=== PATIENT | male | born 1950 | race Caucasian/White ===

== ENCOUNTER 2019-07-31 13:44 | Outpatient (CLI) | payer OTHER, MEDICARE, SELFPAY ==
--- NOTE | 2019-07-31 15:41 | ECG_ITS ---
Measurements Intervals [place] Rate: 81 P: 28 RI: 221 QRS: 10 QRSD: 126 T: 17 QT: 424 QTc: 494 Interpretive Statements SINUS OR ECTOPIC ATRIAL RHYTHM WITH FIRST DEGREE AV BLOCK ATRIAL PREMATURE COMPLEX INTRAVENTRICULAR CONDUCTION DELAY BORDERLINE R WAVE PROGRESSION, ANTERIOR LEADS BORDERLINE ST-T WAVE ABNORMALITY- INF/LAT LEADS ABNORMAL ECG Electronically Signed On 07-31-2019 17:18:13 HUMANE AGENT by Derik Tapia D.O.
[2019-07-31 16:07] LABS: Basophils Absolute Auto 0.1 K/mm3 (0.0-0.1); Basophils Percent Auto 0.7 % (0.2-1.2); Eosinophils Absolute Auto 0.3 K/mm3 (0-0.3); Eosinophils Percent Auto 3.7 % (0-4.4); Hematocrit 44.9 % (42.0-52.0); Hemoglobin 14.8 g/dL (14.0-18.0); Immature Granulocyte Absolute 0.03 K/mm3 (0.00-0.031); Immature Granulocyte Percent A 0.3 % (0-0.5); Lymphocytes Percent Auto 24.9 % (18.3-44.2); Mean Corpuscular Hemoglobin 30.6 pg (26-34); Monocytes Absolute Auto 1.4 K/mm3 (0.1-0.6); Monocytes Percent Auto 14.9 % (2.6-8.5); Neutrophils Absolute Auto 5.1 K/mm3 (1.3-6.7); Neutrophils Percent Auto 55.5 % (45.5-73.1); Platelet Count Result 237 k/mm3 (150-375); Red Blood Count 4.83 M/mm3 (4.6-6.20); Red Cell Distribution Width 13.4 % (11.5-14.5); White Blood Count 9.2 K/mm3 (4.5-10.0)
[2019-07-31 16:17] LABS: Urine Cotinine NEGATIVE
[2019-07-31 16:19] LABS: Hemoglobin A1C 6.3 % (<5.7)
[2019-07-31 16:20] LABS: Albumin Level 4.3 g/dL (3.5-5.1)
[2019-07-31 16:24] LABS: Blood Urea Nitrogen 14 mg/dL (9-20); Calcium 9.3 mg/dL (8.4-10.2); Carbon Dioxide 32 mmol/L (22-30); Chloride 93 mmol/L (98-107); Estimated Glomerular Filt Rate > 60; Glucose 105 mg/dL (75-110); Potassium 3.6 mmol/L (3.4-5.0); Sodium 136 mmol/L (137-145)
== END 2019-07-31 13:45 | disposition home or self-care (01) ==
LOC: ANHSURGERY 13:52
PROVIDERS: Anesthesiology; PCP Emergency Medicine; Visit Provider Orthopaedic Surgery
DX: M17.0 Bilateral primary osteoarthritis of knee (principal); E11.9 Type 2 diabetes mellitus without complications; Z01.818 Encounter for other preprocedural examination; R94.31 Abnormal electrocardiogram [ECG] [EKG]
CPT/HCPCS: 36415; 80048; 80307; 82040; 83036; 85025; 87081; 93005

== ENCOUNTER 2019-08-26 15:47 | Observation (INO) | payer MEDICARE, OTHER, SELFPAY ==
[2019-07-31 14:36] VITALS: BP 114/60; PULSE 88; RESP 20; TEMP 37.8; O2SAT 94; BMI 28.8
[2019-08-25] VITALS (17 sets, daily range): BP systolic 114–150; BP diastolic 78–99; PULSE 69–120; RESP 11–20; TEMP 36.6–37.1; O2SAT 92–96
--- NOTE | 2019-08-25 11:17 | WPDANESEPPF ---
Anes - Initial Pre Proc Eval Procedure: Operation Date: 08/25/19 13:30 Proposed Procedures p Left Total Knee Arthroplasty - [facility] Batista MD Date/Time: 08/25/19 11:17 Surgeon: [facility] Batista MD Pre Op Diagnosis: Left Knee OA Patient Data Age: 68 Gender: M Height: 1.8 m Weight: 93.9 kg Last Vital Signs Temp 37.8 C H 07/31/19 14:36 Pulse 88 07/31/19 14:36 Resp 20 07/31/19 14:36 BP 114/60 07/31/19 14:36 Pulse Ox 94 07/31/19 14:36 Allergies Allergy/AdvReac Type Severity Reaction Status Date / Time No Known Allergies Allergy Verified 08/25/19 11:55 Home Medications Medication Instructions Recorded Confirmed Type aspirin 81 mg tablet,delayed 81 mg PO DAILY 06/03/19 08/25/19 History release atorvastatin 20 mg tablet 80 mg PO DAILY 06/03/19 08/25/19 History furosemide 20 mg tablet 20 mg PO QAM 06/03/19 08/25/19 History losartan 50 mg tablet 50 mg PO DAILY 06/03/19 08/25/19 History metformin 500 mg tablet 500 mg PO DAILY 06/03/19 08/25/19 History metoprolol tartrate 25 mg tablet 25 mg PO BID 06/03/19 08/25/19 History omeprazole 20 mg capsule,delayed 20 mg PO DAILY 06/03/19 08/25/19 History release gabapentin 300 mg PO TID 07/31/19 08/25/19 History hydrocodone-acetaminophen 1 tablet PO Q4-6H PRN 07/31/19 08/25/19 History triamterene-hydrochlorothiazid 1 tablet PO QAM 07/31/19 08/25/19 History vit C,P-Bb-udjqe-lutein-zeaxan 1 tablet PO DAILY 07/31/19 08/25/19 History [PreserVision AREDS-2] ECG: Date of Service: 07/31/19 Procedure(s): CA 12 lead EKG Accession Number(s): [id number] cc: ~ Measurements Intervals [place] Rate: 81 P: 28 [place]: 221 QRS: 10 QRSD: 126 T: 17 QT: 424 QTc: 494 Interpretive Statements SINUS OR ECTOPIC ATRIAL RHYTHM WITH FIRST DEGREE AV BLOCK ATRIAL PREMATURE COMPLEX INTRAVENTRICULAR CONDUCTION DELAY BORDERLINE R WAVE PROGRESSION, ANTERIOR LEADS BORDERLINE ST-T WAVE ABNORMALITY- INF/LAT LEADS ABNORMAL ECG Electronically Signed On 07-31-2019 17:18:13 ACUTE CARE CERTIFIED NURSING ASSISTANT by Derik Tapia D.O. Dictated By: Derik Tapia DO 07/31/19 1605 Other Studies: echo 12/2017 - ef 60%, no valvular abnormalities stress 01/2018 - negative cleared by investor relations specialist Patient hx anesthesia problems: none Family hx anesthesia problems: none PMFSH Past Medical History Medical History (Updated 08/25/19 @ 12:41 by Juan Miguel Moran MD) CAD (coronary artery disease) COPD (chronic obstructive pulmonary disease) Diabetes Gastroesophageal reflux disease History of cardiac disorder VALVE REPAIR NOVEMBER 2011 Hypercholesterolemia Hypertension Localized osteoarthritis of left knee Osteoarthritis of both knees Surgical History Surgical History (Updated 08/25/19 @ 12:44 by Juan Miguel Moran MD) History of back surgery (~05/25/19) History of back surgery (~1986) History of eye surgery History of hand surgery (~2001) History of neck surgery (~2002) History of open heart surgery (~12/27/11) mitral valve replaced Social History Social History Smoking status: Former smoker Alcohol intake: current Anes - Eval Final PreProcedure Day of Procedure 08/25/19 11:17 Patient weight: overweight Heart: regular rate and rhythm Lungs: clear to auscultation and normal air movement Airway: Mallampati scale class II Neurological: alert and oriented Last oral intake: >/= 8 hours ASA classification: III Emergent: no Anesthetic plan: proceed Anesthesia type and monitoring: general LMA Informed Consent: The patient's anesthetic plan and its attendant risks and benefits were discussed with the patient/family/POA. Questions were solicite
[2019-08-25] MEDS: LACTATED RINGERS 1,000 ML 30 ML IV CONT ×2 (12:05→17:00)
[2019-08-25 12:10] LABS: Glucose Point of Care 96 (65-105)
--- NOTE | 2019-08-25 13:37 | SUR.PREOP ---
1200 PT INFORMEDD OF SURGEY TIME DELAY. PT DENIES NEEDS AT THIS TIME. 1300 PT RESTING, DENIES NEEDS AT THIS TIME.
--- NOTE | 2019-08-25 14:26 | WPDANESPNB ---
Anes - Peripheral Nerve Block Date/Time: 08/25/19 14:26 I have discussed with the patient/family/POA the placement of a peripheral nerve block for post-operative pain management, including associated risks, benefits, complications, and side effects. Alternative methods of post-operative analgesia were detailed. Questions were solicited and answers provided to the satisfaction of the patient/family/POA. Time-Out: A pre-procedural Time-Out was completed immediately before starting the procedure and confirmed: Patient Identification, Site, Procedure, Patient Position and the Availability of Requisite Equipment. Clinical Indications: Acute post-operative pain management requested by the operative surgeon. Nerve Block Insertion Note Anes-nerve block: adductor canal left Patient position: supine Skin prep: chlorhexidine Needle: 22 gauge, stimulating, insulated echogenic needle. Needle length: 80 mm Technique: ultrasound Technique comment: in plane Injectate: bupivacaine 0.5% with epi 5 mcg/ml (30cc) Observations: tolerated well Complications: none Procedure start time:: 1420 Procedure end time:: 1425
--- NOTE | 2019-08-25 14:31 | WPDHPUPDATE1 ---
History and Physical Update Update Date/Time: 08/25/19 14:31 History and Physical has been reviewed, including an updated exam of the patient. There are NO changes in the patient's condition. Risks, benefits, and alternatives have been discussed and questions answered. Patient agrees to proceed with procedure.
--- NOTE | 2019-08-25 14:53 | ECG_ITS ---
Measurements Intervals [place] Rate: 86 P: DC: 0 QRS: 12 QRSD: 89 T: 42 QT: 388 QTc: 466 Interpretive Statements SINUS OR ECTOPIC ATRIAL RHYTHM ATRIAL COUPLET, ATRIAL AND VENTRICULAR PREMATURE COMPLEXES BORDERLINE ST ABNORMALITY- ANTEROLAT/LAT LEADS ABNORMAL ECG Electronically Signed On 08-25-2019 16:35:09 HIGH SCHOOL HOME ECONOMICS TEACHER by Derik Tapia D.O.
--- NOTE | 2019-08-25 15:16 | SUR.PHASEI ---
1505 ekg done at bedside. ekg given to dr hamilton.
--- NOTE | 2019-08-25 15:20 | SUR.PHASEI ---
1451 surgery was aborted due to pt being in afib with pvc. sent to recovery. ekg ordere. cardiology consulted. 1520 [address] ham[address] spoke with dr umana, cardiology, pt has the ok to proceed with surgery per dr umana
[2019-08-25] MEDS: ceFAZolin SODIUM 1 GM VIAL IV PUSH (15:25)
--- NOTE | 2019-08-25 17:57 | PM.PROC ---
Procedure Note - Detailed Date of procedure: 08/25/19 Pre-op diagnosis: Left Knee OA Post-op diagnosis: same Procedure performed: Total knee arthroplasty, left Implants: [place] [employer] size 5 Cemented femur, size 6 cemented low-profile tibia, 13mm CS polyethylene insert, 38mm asymmetric metal backed patellar component. Anesthesia: GETA and regional (subsartorial nerve block) Surgeon: [facility] Batista MD Drains: No Complications: None Findings: OPERATIVE FINDINGS: The patient was found to be in atrial fibrillation preoperatively. He had a history of this in the past. Recent EKGs however have been normal. The anesthesiologist spoke with his laborer rags who felt that surgery could proceed. He would be treated with anticoagulation after several weeks when bleeding risk from surgery was deemed low. Intraoperative findings: Excellent bone quality. Valgus contracture required lateral release with pie crusting. Mild PCL release. Downsizing of the femur 1.5 mm. Looseness of the lateral medial tissues required decreased external rotation of the femoral component to 1 degree. OPERATIVE DETAILS: The patient was given a nerve block preoperatively, and then brought to the operating room. A general anesthetic was administered. The leg was prepped and draped in the usual sterile fashion. The limb was elevated and the tourniquet inflated to 300 mmHg. A longitudinal incision was created along the medial border of the patella and patellar tendon, and a minimally invasive optimized mid-vastus approach to the knee was performed. A minimal medial release was taken. The knee was then flexed. The osteophytes were carefully removed. The intramedullary guide was placed in the femoral canal. The distal femoral resection was then taken with the oscillating saw. The collateral ligaments were carefully protected. The tibia was carefully exposed. The jig was applied, and the proximal tibia was resected according to preoperative plan. The pain really anesthetic mixture was injected into the periarticular tissues. The knee was balanced in extension, and appropriate releases were taken where needed. Pie crusting of the LCL and resection of the popliteus was performed. Release of the ITB band was also required. The anterior cruciate ligament and meniscal remnants were removed. The posterior cruciate ligament was preserved. The patella was measured. Patellar resection was carried out with the oscillating saw. The lug holes drilled. The femur was sized and rotation assessed using a combination of gap balancing, posterior referencing, and the AP axis. The 4 in 1 cutting block was used to finish the femoral cuts after equal gaps were assured. The lug holes were drilled. The osteophytes were carefully removed from the back of the knee. The knee was copiously irrigated with antibiotic solution periodically throughout the procedure. The spacer block was used to confirm equal flexion and extension gaps. Further releases were performed as needed. The tibia was sized and broached. The bony surfaces were prepared for cementing with pulsatile lavage. The real tibial component and femoral components were cemented into position. Excess cement was carefully removed. The polyethylene insert was placed. The patella component was subsequently press-fit. Patellar tracking was carefully assessed. No additional releases were required. The wound was closed with #1 Vicryl suture, #2 Quill suture, 3-Vueitn-vdp suture, and 2-0 Strata-fix suture followed by Steri-Strips. A sterile bulky dressing was applied. Meticulous hemostasis was maintained throughout the procedure. The SlideMailtys device was used. There were no complications. The patient was extubated and brought to the recovery room in stable condition after the application of sterile dressing with Pierce bandage.
--- NOTE | 2019-08-25 18:15 | SUR.PHASEI ---
[address] kam. hospitalist consulted also. dr kam spoke with hospitalist. waiting for hospitalist to see pt in recovery. 1814 ekg done at bedside. sr with frequent pvc
--- NOTE | 2019-08-25 18:20 | SUR.PHASEI ---
5641 radiology at bedside to do xrays
--- NOTE | 2019-08-25 18:37 | SUR.PHASEI ---
1837 family updated on pt scout and current situation
--- NOTE | 2019-08-25 19:27 | SUR.PHASEI ---
192 hospitalist heather ayala notified. pt ok to go to floor, 3 med surg with tele, will see pt on floor. warehouse coordinator notified getting pt a bed
--- NOTE | 2019-08-25 19:33 | SUR.PHASEI ---
1930 spouse updated on pt condition and bed situation
--- NOTE | 2019-08-25 19:46 | SUR.PHASEI ---
9053 sbar faxed to floor. family updated on room#
[2019-08-25] MEDS: METOPROLOL TARTRATE 25 MG TABLET PO (21:07)
[2019-08-25] MEDS: SODIUM CHLORIDE 0.9% IV 1,000 ML 125 ML IV CONT (21:07)
[2019-08-25] MEDS: GABAPENTIN 300 MG CAPSULE PO (21:07)
[2019-08-26] VITALS (16 sets, daily range): BP systolic 128–150; BP diastolic 66–72; PULSE 69–91; RESP 16–20; TEMP 36.6–36.9; O2SAT 92–100
--- NOTE | ~2019-08-26 | XR_ITS ---
EXAMINATION: XR knee LT 2V DATE: 08/25/2019 17:46 INDICATION: Postoperative evaluation following left total knee arthroplasty. TECHNIQUE: Anteroposterior and lateral views of the left knee were obtained. COMPARISON: None. FINDINGS: Left total knee arthroplasty with patellar resurfacing appears well seated and in near anatomic align ment. No fractures identified. Expected postoperative subcutaneous and intra-articular gas. IMPRESSION: 1. Left total knee arthroplasty, negative for postoperative purposes. Reviewed, dictated and finalized at location A. MACHINE DEPARTMENT FLOORPERSON
--- NOTE | ~2019-08-26 | XR_ITS ---
EXAMINATION: XR chest 1V portable INDICATION: Cough TECHNIQUE: Portable AP chest at 0927 hours COMPARISON: None available FINDINGS: There are minimal airspace opacities of the lung bases. No pleural effusion or pneumothorax is identified. Cardiomegaly is noted. There are changes of cardiac valve surgery. IMPRESSION: 1. Cardiomegaly. 2. Minimal airspace opacities of the lung bases, likely atelectasis. Reviewed, dictated and finalized at location A. TIVE CHECKER
--- NOTE | 2019-08-26 00:29 | PM.IMCN ---
Assessment and Plan Assessment and plan (1) Status post total left knee replacement: Code(s): Z96.652 - Presence of left artificial knee joint Status: Acute Assessment and Plan: Management per primary service. (2) COPD (chronic obstructive pulmonary disease): Qualifiers: COPD type: COPD with acute exacerbation Qualified Code(s): J44.1 - Chronic obstructive pulmonary disease with (acute) exacerbation Code(s): J44.9 - Chronic obstructive pulmonary disease, unspecified Status: Acute Assessment and Plan: The patient has an acute COPD exacerbation likely due to viral upper respiratory tract infection and or increased wheezing due to recent intubation. Will place the patient on Xopenex and Atrovent as needed. Hopefully bronchodilators will be in a to open the patient's airway without the need for additional steroids. There was not need add antibiotics at this time as patient is afebrile and nontoxic in appearance. (3) Abnormal EKG: Code(s): R94.31 - Abnormal electrocardiogram [ECG] [EKG] Status: Acute Assessment and Plan: Consistent with sinus or ectopic atrial rhythm with atrial couplets and/or atrial and ventricular premature complexes. This appears similar to the patient's prior EKG and is likely the patient's baseline. (4) Hypertension: Qualifiers: Hypertension type: essential hypertension Qualified Code(s): I10 - Essential (primary) hypertension Code(s): I10 - Essential (primary) hypertension Status: Acute Assessment and Plan: Patient's blood pressure is stable. Will continue home medications. (5) Diabetes: Qualifiers: Diabetes mellitus complication detail: with polyneuropathy Diabetes mellitus complication status: with neurologic complications Diabetes mellitus alf insulin use: without termite control representative use Diabetes mellitus type: type 2 Qualified Code(s): E11.42 - Type 2 diabetes mellitus with diabetic polyneuropathy Code(s): E11.9 - Type 2 diabetes mellitus without complications Status: Acute Assessment and Plan: Patient's hemoglobin A1c was 6.3 July 31, 2019. Glucose currently is normal. Will continue metformin. HPI Data of Consult Consult date: 08/26/19 Requesting Physician: [facility] Batista MD Primary Care Provider: PHYSICIAN NOT ON STAFF Consult Narrative Narrative: Date and time of patient contact: 08/25/2019 at 11:30 p.m. Danny Hodge is a 68 year old male with a past medical history of COPD, mitral valve repair, diabetes and cardiac arrhythmia who presented to the hospital for elective left total knee arthroplasty. The patient underwent left total knee arthroplasty on 08/25/2019 under general endotracheal anesthesia with regional nerve block. The patient reports he is not having much pain currently and thinks that his nerve block is working well. Perioperatively the patient had any EKG which demonstrated an atrial arrhythmia. The anesthesiologist contacted patient's recreation superintendent who felt it was safe to proceed with surgery. The patient reports that he has had a cough for 3 or 4 days. He is noted to be wheezing at the time of my evaluation. He reports he has had nasal congestion and reports green sputum production and green nasal drainage. He denies any fevers or chills. He reports that his cough is for the most part dry. He has noticed himself wheezing more over the last several days. He feels as if he has a tickle in his throat. He denies any sore throat. He has not had any nausea or vomiting. He denies any recent ill contacts. He does have a history of COPD was states that he has been tried on inhalers in the past and they did not seem to work for him but he does not specifically recall having tried nebulizers to see if they will help. He does have peripheral neuropathy but is stable. He also has chronic sciatica pain and low back pain. He had a lumbar surgery in
[2019-08-26] MEDS: IPRATROPIUM BR 0.02% INH SOLN 0.5 MG/2.5 ML VIAL INHALATION ×2 (00:56→14:43)
[2019-08-26] MEDS: DIAZEPAM 5 MG TABLET PO (02:01)
[2019-08-26 05:56] LABS: Basophils Percent Auto 0.1 % (0.2-1.2); Hematocrit 38.4 % (42.0-52.0); Hemoglobin 12.6 g/dL (14.0-18.0); Immature Granulocyte Absolute 0.08 K/mm3 (0.00-0.031); Immature Granulocyte Percent A 0.6 % (0-0.5); Lymphocytes Absolute Auto 1.34 K/mm3 (0.9-3.2); Mean Corpuscular HGB Conc 32.8 g/dl (32-36); Mean Corpuscular Volume 94.6 fl (80-100); Mean Platelet Volume 10.7 fl (7.4-10.4); Monocytes Absolute Auto 1.2 K/mm3 (0.1-0.6); Neutrophils Absolute Auto 10.7 K/mm3 (1.3-6.7); Neutrophils Percent Auto 80.3 % (45.5-73.1); Platelet Count Result 241 k/mm3 (150-375); Red Blood Count 4.06 M/mm3 (4.6-6.20); Red Cell Distribution Width 13.8 % (11.5-14.5); White Blood Count 13.4 K/mm3 (4.5-10.0)
[2019-08-26 06:29] LABS: Blood Urea Nitrogen 17 mg/dL (9-20); Calcium 8.1 mg/dL (8.4-10.2); Carbon Dioxide 22 mmol/L (22-30); Chloride 95 mmol/L (98-107); Estimated CRCL calculation 94 ml/min; Estimated Glomerular Filt Rate > 60; Glucose 354 mg/dL (75-110); Potassium 3.9 mmol/L (3.4-5.0); Sodium 136 mmol/L (137-145)
[2019-08-26] MEDS: ATORVASTATIN 20 MG TABLET 80 MG PO (08:32)
[2019-08-26] MEDS: metFORMIN HCL 500 MG TABLET PO (08:33)
[2019-08-26] MEDS: OPTI-GEN TAB 1 TABLET PO (08:33)
[2019-08-26] MEDS: LOSARTAN POTASSIUM 50 MG TABLET PO (08:33)
[2019-08-26] MEDS: MELOXICAM 7.5 MG TABLET PO ×2 (08:33→20:12)
[2019-08-26] MEDS: TRIAMTERENE 37.5 MG/HCTZ 25 MG (MAXZIDE) TABLET 1 TAB PO (08:33)
[2019-08-26] MEDS: GABAPENTIN 300 MG CAPSULE PO ×3 (08:33→20:12)
[2019-08-26] MEDS: DOCUSATE SODIUM 100 MG CAPSULE PO ×2 (08:33→20:12)
[2019-08-26] MEDS: PANTOPRAZOLE 40 MG TABLET PO (08:33)
[2019-08-26] MEDS: FUROSEMIDE 20 MG TABLET PO (08:33)
[2019-08-26] MEDS: METOPROLOL TARTRATE 25 MG TABLET PO ×2 (08:34→20:15)
[2019-08-26] MEDS: RIVAROXABAN 10 MG TABLET PO (08:34)
--- NOTE | 2019-08-26 13:46 | P.PNAN_ITS ---
Anes - Prog Note Post-Op Date/Time: 08/26/19 13:46 Cardiovascular status: other (patient being monitored by engineering group manager) Respiratory status: normal Airway patency: baseline Mental status: baseline Post-Op hydration status: normal Vital Signs: Last Vital Signs Temp 36.6 C 08/26/19 06:00 Pulse 81 08/26/19 12:00 Resp 18 08/26/19 06:00 BP 150/71 H 08/26/19 06:00 Pulse Ox 95 08/26/19 10:23 Pain Score (VAS): 0/10. Patient resting in bed at time of assessment, appears comfortable. Support person at bedside. I/O: Intake & Output 08/25/19 08/26/19 08/26/19 23:59 07:59 15:59 Intake Total 350 1850 360 Output Total 2 Balance 350 1848 360 Laboratory Tests 08/26/19 05:34 08/26/19 05:34 08/26/19 08/26/19 05:34 05:34 WBC 13.4 H RBC 4.06 L Hgb 12.6 L Hct 38.4 L MCV 94.6 MCH 31.0 MCHC 32.8 RDW 13.8 Plt Count 241 MPV 10.7 H Immature Gran % (Auto) 0.6 H Neut % (Auto) 80.3 H Lymph % (Auto) 10.0 L [place] % (Auto) 9.0 H Eos % (Auto) 0.0 Baso % (Auto) 0.1 L Lymph # (Auto) 1.34 [place] # (Auto) 1.2 H Eos # (Auto) 0.0 Baso # (Auto) 0.0 Abs Immat Gran (auto) 0.08 H Absolute Neuts (auto) 10.7 H Absolute Nucleated RBC 0.0 Nucleated RBC % 0.0 Sodium 136 L Potassium 3.9 Chloride 95 L Carbon Dioxide 22 BUN 17 Creatinine 0.70 Estim Creat Clear Calc 94 Estimated GFR > 60 Glucose 354 H Calcium 8.1 L Post-procedural complaints: none Patient Feedback: Patient satisfied with anesthetic care.
--- NOTE | 2019-08-26 15:13 | PM.IMPN ---
Progress Note: A&P Assessment and Plan (1) Status post total left knee replacement: Code(s): Z96.652 - Presence of left artificial knee joint Status: Acute Assessment and Plan: POD#1 s/p left total knee arthroplasty by Dr. Batista 08/25 and seems to be doing well. Wound care, pain control, DVT prophylaxis per the primary service. (2) COPD (chronic obstructive pulmonary disease): Qualifiers: COPD type: COPD with acute exacerbation Qualified Code(s): J44.1 - Chronic obstructive pulmonary disease with (acute) exacerbation Code(s): J44.9 - Chronic obstructive pulmonary disease, unspecified Status: Acute Assessment and Plan: Slight expiratory wheezing noted today. Afebrile, nontoxic in appearance. Continue nebulized bronchodilators as needed. No steroids or antibiotics warranted at this point based on his exam today. (3) Abnormal EKG: Code(s): R94.31 - Abnormal electrocardiogram [ECG] [EKG] Status: Acute Assessment and Plan: Consistent with sinus or ectopic atrial rhythm with atrial couplets and/or atrial and ventricular premature complexes. Telemetry review today shows ventricular trigeminy. He denies chest pain, palpitations, or dizziness. Similar findings are noted on his pre-op EKG from July. These findings are likely chronic for him. His established oil painter is Dr Yousif Fall with [facility]; patient saw him a few weeks ago when he cleared the patient for surgery. I am also told by the patient's that a new EKG was faxed to Dr Fall yesterday preoperatively. He should follow up with Dr Fall after discharge. No further medication adjustments today. Continue his home regimen to include beta blockade. (4) Hypertension: Qualifiers: Hypertension type: essential hypertension Qualified Code(s): I10 - Essential (primary) hypertension Code(s): I10 - Essential (primary) hypertension Status: Acute Assessment and Plan: Elevated likely secondary to postop pain. Continue his home antihypertensive regimen and monitor BP. (5) Diabetes: Qualifiers: Diabetes mellitus type: type 2 Diabetes mellitus fci insulin use: without exterminator helper termite use Diabetes mellitus complication status: with neurologic complications Diabetes mellitus complication detail: with polyneuropathy Qualified Code(s): E11.42 - Type 2 diabetes mellitus with diabetic polyneuropathy Code(s): E11.9 - Type 2 diabetes mellitus without complications Status: Acute Assessment and Plan: Patient's preop Hgb A1c was 6.3 07/31/19. Glucose elevated on morning labs, will order for bedside Accu-Cheks ACHS and sliding scale insulin coverage. Continue his home metformin also. Subjective Date/time seen: 08/26/19 15:13 Interval history: Mr. Hodge is a 68yo M seen in follow up this afternoon POD#1 s/p left total knee arthroplasty by Dr. Batista. Procedure went well without complications to my knowledge and the patient feels well today. He reports therapy went well also. He is tolerating oral intake without nausea or vomiting. He denies any chest pain or palpitations. He notes a productive cough today, shortness of breath is mild and at his baseline. Review of Systems Review of Systems: Narrative: Twelve systems were reviewed with pertinent positives and negatives as per HPI. Exam Narrative: Exam Narrative: General: Male sitting up in bedside chair in no acute distress. HEENT: Normocephalic, EOMI, oral mucosa moist. Cardiovascular: Rate is normal, ectopic beats are auscultated. Telemetry review shows frequent PACs and PVCs with ventricular trigeminy. He is asymptomatic with this. Respiratory: Faint expiratory wheeze with prolonged expiratory phase. Productive cough noted on exam. Respirations are
--- NOTE | 2019-08-26 15:55 | PM.PNORT ---
Progress Note: A&P Assessment and Plan (1) Status post total left knee replacement: Code(s): Z96.652 - Presence of left artificial knee joint Status: Acute Assessment and Plan: Progressing satisfactorily. No new cardiac symptoms. Recommend keeping the patient another night, due to increasing pain, cardiac history, and poor mobility. Subjective Subjective Date/Time Seen: 08/26/19 15:55 Interval history: Complains of moderate pain. No chest pain, or shortness of breath. Exam Narrative: Exam Narrative: Wound is healing well. No drainage, or hematoma. Moderate swelling. Anterior tibialis and EHL 5/5. No edema. Calves non tender. Const: Orientation/consciousness: patient oriented x3 Extrem: General: capillary refill normal, no calf tenderness bilaterally and no pedal edema Psych: Affect: normal affect Objective Data Vital Signs Vital Signs: Vital Signs - 24 hr 08/25/19 17:40 08/25/19 17:55 08/25/19 18:10 Temperature 36.8 C Pulse Rate 81 74 78 Respiratory Rate 17 18 Blood Pressure 139/88 145/88 H 141/85 H Pulse Oximetry 96 96 96 08/25/19 18:25 08/25/19 18:40 08/25/19 18:55 Temperature Pulse Rate 74 77 76 Respiratory Rate 13 14 14 Blood Pressure 131/78 148/98 H 130/99 H Pulse Oximetry 92 94 94 08/25/19 19:10 08/25/19 19:25 08/25/19 19:40 Temperature Pulse Rate 73 72 77 Respiratory Rate 12 12 12 Blood Pressure 139/94 H 147/82 H 150/92 H Pulse Oximetry 94 95 95 08/25/19 20:03 08/25/19 20:18 08/25/19 20:48 Temperature 37.1 C 36.8 C 36.9 C Pulse Rate 70 69 69 Respiratory Rate 18 18 18 Blood Pressure 148/85 H 142/79 H 139/80 Pulse Oximetry 95 96 96 08/25/19 21:07 08/25/19 22:30 08/26/19 00:00 Temperature Pulse Rate 70 69 76 Respiratory Rate Blood Pressure Pulse Oximetry 08/26/19 00:57 08/26/19 01:03 08/26/19 02:07 Temperature 36.8 C Pulse Rate 69 72 69 Respiratory Rate 18 18 18 Blood Pressure 142/72 H Pulse Oximetry 96 08/26/19 04:00 08/26/19 06:00 08/26/19 08:00 Temperature 36.6 C Pulse Rate 83 87 83 Respiratory Rate 18 Blood Pressure 150/71 H Pulse Oximetry 92 08/26/19 08:34 08/26/19 10:23 08/26/19 12:00 Temperature Pulse Rate 72 81 Respiratory Rate Blood Pressure Pulse Oximetry 95 08/26/19 14:44 08/26/19 14:55 Temperature Pulse Rate 77 76 Respiratory Rate 18 16 Blood Pressure Pulse Oximetry Intake/Output Intake/Output: Intake & Output 08/23/19 08/24/19 08/25/19 08/26/19 23:59 23:59 23:59 23:59 Intake Total 350 2210 Output Total 2 Balance 350 2208 Meds/Results Medications: Active Medications Generic Name Dose Route Start Last Admin Trade Name Freq PRN Reason Stop Dose Admin Atorvastatin Calcium 80 mg 08/26/19 09:00 08/26/19 08:32 Lipitor PO 80 mg DAILY ANIKA Administration Diazepam 5 mg 08/25/19 20:03 08/26/19 02:01 Valium Po PO 5 mg Q8H PRN Administration Spasms Diphenhydramine HCl 25 mg 08/25/19 20:03 Benadryl Inj IV PUSH Q6H PRN Itching Docusate Sodium 100 mg 08/26/19 09:00 08/26/19 08:33 Colace Capsule PO 100 mg BID ANIKA Administration Furosemide 20 mg 08/26/19 09:00 08/26/19 08:33 Lasix Tablet PO 20 mg QAM ANIKA Administration Gabapentin 300 mg 08/25/19 17:00 08/26/19 08:33 Neurontin PO 300 mg TID ANIKA Administration Ipratropium Mark 0.5 mg 08/26/19 00:26 08/26/19 14:43 Atrovent Neb INHALATION 0.5 mg Q4HRT PRN Administration Shortness of breath/COUGH Levalbuterol HCl 1.25 mg 08/26/19 00:27 08/26/19 14:44 Xopenex 1.25 Mg/0.5 Ml INHALATION 1.25 mg Q4HRT PRN Administration COUGH SHORTNESS OF BREATH Losartan Potassium 50 mg 08/26/19 09:00 08/26/19 08:33 Cozaar PO 50 mg DAILY ANIKA Administration Meloxicam 7.5 mg 08/26/19 08:00 08/26/19 08:33 Mobic PO 7.5 mg BIDWM ANIKA Administration Meperidine HCl 100 mg 08/25/19 20:03
[2019-08-26 18:38] LABS: Glucose Point of Care 134 (65-105)
[2019-08-27] VITALS (8 sets, daily range): BP systolic 101; BP diastolic 55; PULSE 72–95; RESP 20; TEMP 37.2; O2SAT 96–97
[2019-08-27 06:18] LABS: Hematocrit 35.7 % (42.0-52.0); Hemoglobin 11.6 g/dL (14.0-18.0); Mean Corpuscular HGB Conc 32.5 g/dl (32-36); Mean Corpuscular Hemoglobin 30.7 pg (26-34); Mean Corpuscular Volume 94.4 fl (80-100); Mean Platelet Volume 10.3 fl (7.4-10.4); Platelet Count Result 232 k/mm3 (150-375); Red Blood Count 3.78 M/mm3 (4.6-6.20); Red Cell Distribution Width 14.1 % (11.5-14.5)
[2019-08-27 06:34] LABS: Blood Urea Nitrogen 17 mg/dL (9-20); Calcium 7.9 mg/dL (8.4-10.2); Carbon Dioxide 30 mmol/L (22-30); Chloride 95 mmol/L (98-107); Estimated CRCL calculation 83 ml/min; Estimated Glomerular Filt Rate > 60; Glucose 128 mg/dL (75-110); Magnesium 1.7 mg/dL (1.6-2.3); Phosphorus 3.2 mg/dL (2.5-4.5); Potassium 3.7 mmol/L (3.4-5.0); Sodium 137 mmol/L (137-145)
[2019-08-27 07:01] LABS: Glucose Point of Care 111 (65-105)
[2019-08-27] MEDS: ATORVASTATIN 20 MG TABLET 80 MG PO (08:33)
[2019-08-27] MEDS: METOPROLOL TARTRATE 25 MG TABLET PO (08:33)
[2019-08-27] MEDS: MELOXICAM 7.5 MG TABLET PO (08:33)
[2019-08-27] MEDS: FUROSEMIDE 20 MG TABLET PO (08:35)
[2019-08-27] MEDS: LOSARTAN POTASSIUM 50 MG TABLET PO (08:35)
[2019-08-27] MEDS: metFORMIN HCL 500 MG TABLET PO (08:35)
[2019-08-27] MEDS: OPTI-GEN TAB 1 TABLET PO (08:35)
[2019-08-27] MEDS: DOCUSATE SODIUM 100 MG CAPSULE PO (08:35)
[2019-08-27] MEDS: TRIAMTERENE 37.5 MG/HCTZ 25 MG (MAXZIDE) TABLET 1 TAB PO (08:35)
[2019-08-27] MEDS: PANTOPRAZOLE 40 MG TABLET PO (08:36)
[2019-08-27] MEDS: GABAPENTIN 300 MG CAPSULE PO (08:36)
[2019-08-27] MEDS: RIVAROXABAN 10 MG TABLET PO (08:36)
[2019-08-27] MEDS: MAGNESIUM OXIDE 400 MG TABLET PO (09:10)
--- NOTE | 2019-08-27 09:33 | PM.IMPN ---
Progress Note: A&P Assessment and Plan (1) Status post total left knee replacement: Code(s): Z96.652 - Presence of left artificial knee joint Status: Acute Assessment and Plan: POD#2 s/p left total knee arthroplasty by Dr. Batista 08/25. Wound care, pain control, DVT prophylaxis per the primary service. (2) COPD (chronic obstructive pulmonary disease): Qualifiers: COPD type: COPD with acute exacerbation Qualified Code(s): J44.1 - Chronic obstructive pulmonary disease with (acute) exacerbation Code(s): J44.9 - Chronic obstructive pulmonary disease, unspecified Status: Acute Assessment and Plan: Slight expiratory wheezing noted with productive cough. Afebrile, nontoxic in appearance. Chest XR shows atelectasis. Changed nebulized bronchodilators to scheduled q6, added pulmozyme and mucinex, [place]. He has been taking mucinex at home for the last several days. Recommend continuing mucinex at discharge and making sure he takes his incentive spirometer home. (3) Abnormal EKG: Code(s): R94.31 - Abnormal electrocardiogram [ECG] [EKG] Status: Acute Assessment and Plan: Consistent with sinus or ectopic atrial rhythm with atrial couplets and/or atrial and ventricular premature complexes. Telemetry review today shows paired PVCs that are frequent. He denies chest pain, palpitations, or dizziness. Similar findings are noted on his pre-op EKG from July. These findings appear chronic for him. His established agent ticketing gate is Dr Yousif Fall with [facility]; patient saw him a few weeks ago when he cleared the patient for surgery. I am also told by the patient's that a new EKG was faxed to Dr Fall 08/24 preoperatively. He should follow up with Dr Fall after discharge. No further medication adjustments today. Continue his home regimen to include beta blockade. (4) Hypertension: Qualifiers: Hypertension type: essential hypertension Qualified Code(s): I10 - Essential (primary) hypertension Code(s): I10 - Essential (primary) hypertension Status: Acute Assessment and Plan: Continue his home losartan, metoprolol, Maxzide and monitor BP. (5) Diabetes: Qualifiers: Diabetes mellitus complication detail: with polyneuropathy Diabetes mellitus complication status: with neurologic complications Diabetes mellitus manager long term care insulin use: without halfway use Diabetes mellitus type: type 2 Qualified Code(s): E11.42 - Type 2 diabetes mellitus with diabetic polyneuropathy Code(s): E11.9 - Type 2 diabetes mellitus without complications Status: Acute Assessment and Plan: Patient's preop Hgb A1c was 6.3 07/31/19. Monitor with Accu-Cheks and cover sliding scale insulin. Continue home metformin. Diabetic diet. Additional Plan Thank you for allowing me to participate this patient's care. Call for any questions or concerns. He is medically stable for discharge from hospitalist standpoint when the primary service deems this appropriate. Recommend continuing Mucinex and IS at discharge. Recommend follow-up with PCP Dr Beau Juarez in 1 week after discharge; follow-up with agent ticketing gate Dr Yousif Fall in 1 to 2 weeks. Subjective Date/time seen: 08/27/19 09:00 Interval history: Mr. Hodge is a 68yo M seen in follow up this afternoon POD#2 s/p left total knee arthroplasty by Dr. Batista. He feels like his left knee is more stiff and painful today. He has not yet worked with therapy this morning but reports therapy went fairly well yesterday. He continues with a productive cough today but denies feeling very short of breath. He denies chest pains or palpitations. He tolerated breakfast without nausea or vomiting. Review of Systems Review of Systems: Narrative: Twelve systems wer
[2019-08-27] MEDS: IPRATROPIUM BR 0.02% INH SOLN 0.5 MG/2.5 ML VIAL INHALATION (10:35)
[2019-08-27] MEDS: DORNASE ALFA INH SOLN 1 MG/ML 2.5 ML AMP 2.5 MG INHALATION (10:36)
--- NOTE | 2019-08-27 12:36 | PM.DS ---
DS: Diagnosis Admitting Diagnosis Admitting Diagnosis: Type 2 diabetes mellitus without complications Discharge Diagnosis (1) Status post total left knee replacement: Code(s): Z96.652 - Presence of left artificial knee joint Status: Acute (2) Abnormal EKG: Code(s): R94.31 - Abnormal electrocardiogram [ECG] [EKG] Status: Acute DS: Summary Hospital Course Reason for hospitalization: Total knee arthroplasty. Hospital Course: Tolerated surgery well. Progressed appropriately with therapy. Status at Discharge Functional status at discharge: uses cane/walker Time Spent with Patient Time attestation: Total time spent providing and/or coordinating discharge services: Exam Const: General: no acute distress Resp: Effort & Inspection: normal respiratory effort Skin: Other: Wound healing well. Mepilex dressing intact. No hematoma or drainage. Neuro: Motor exam (neuro): 5/5 motor strength present throughout Sensory Exam: normal sensation Psych: Mental Status: mental status grossly normal Speech and movement: Normal speech and movement present DS: Data Data Completed and Pending Labs on day of discharge: Labs from last 24 hours 08/27/19 08/27/19 08/27/19 06:58 06:06 06:06 WBC 12.0 H RBC 3.78 L Hgb 11.6 L Hct 35.7 L MCV 94.4 MCH 30.7 MCHC 32.5 RDW 14.1 Plt Count 232 MPV 10.3 Sodium 137 Potassium 3.7 Chloride 95 L Carbon Dioxide 30 BUN 17 Creatinine 0.80 Estim Creat Clear Calc 83 Estimated GFR > 60 Glucose 128 H POC Capillary Glucose 111 H Calcium 7.9 L Phosphorus 3.2 Magnesium 1.7 08/26/19 08/25/19 18:29 12:05 WBC RBC Hgb Hct MCV MCH MCHC RDW Plt Count MPV Sodium Potassium Chloride Carbon Dioxide BUN Creatinine Estim Creat Clear Calc Estimated GFR Glucose POC Capillary Glucose 134 H 96 Calcium Phosphorus Magnesium Discharge Plan Discharge Attending physician on discharge: [facility] Consulting providers: Helga Wilson ; Gabbie Harkins Discharging Clinician: [facility] Patient Disposition: Home, Self-Care Activity: may shower Diet: regular Wound Care Instructions: follow printed instructions Discharge Instructions: See instruction sheet. Hospitalist Discharge Instructions: Follow up with Dr Batista as instructed. Follow up with your primary care provider, Dr Juarez in 1 week after discharge. Follow up with your shrimp boat captain, Dr Fall in 1 to 2 weeks after discharge. Continue mucinex and continue using incentive spirometer at home. Follow-up/Referrals: [facility] [Provider Group] - 2 Weeks (Follow up with Dr Yousif Fall in 1 to 2 weeks.) UNKNOWN,DOCTOR [Primary Care Provider] - Follow Up with Primary Dr (Follow up with primary care doctor in 1 week.) Discharge Medications: New oxycodone-acetaminophen 5-325 mg tablet 1 - 2 tablet PO Q4-6H MDD 8 tablets PRN (Reason: pain) Qty: 40 RF: 0 guaifenesin [Mucus Relief ER] 600 mg Tablet Extended Release 12hr 600 mg PO Q12HR 10 Days Qty: 20 RF: 0 Xarelto 10 mg tablet 10 mg PO DAILY Qty: 14 RF: 0 Continued metformin 500 mg tablet 500 mg PO DAILY RF: 0 atorvastatin 20 mg tablet 80 mg PO DAILY RF: 0 losartan 50 mg tablet 50 mg PO DAILY RF: 0 furosemide 20 mg tablet 20 mg PO QAM RF: 0 metoprolol tartrate 25 mg tablet 25 mg PO BID RF: 0 omeprazole 20 mg capsule,delayed release(DR/EC) 20 mg PO DAILY RF: 0 gabapentin 300 mg Capsule 300 mg PO TID RF: 0 triamterene-hydrochlorothiazid 37.5-25 mg Tablet 1 tablet PO QAM RF: 0 PreserVision AREDS-2 [phone] ox-meyx-iw-mg Capsule 1 tablet PO DAILY RF: 0 hydrocodone-acetaminophen 10-325 mg Tablet 1 tablet PO Q4-6H PRN (Reason: PAIN) RF: 0 Held aspirin [Adult Low Dose Aspirin] 81 mg tablet,delayed
[2019-08-27 13:07] LABS: Glucose Point of Care 92 (65-105)
--- NOTE | 2019-08-27 13:38 | PC.NURSE ---
Tried to educate pt on pain management. Pt continues to joke and request his dope , asking for additional meds telling me to say he dropped them. Encouraged pt to try and take them only when needed due to their addictive nature. Pt says he can have them so I should keeping bring them as often as I can.
== END 2019-08-27 14:29 | disposition home or self-care (01) ==
LOC: ANHSURGERY 15:49 → ANH3MEDSUR 15:49
PROVIDERS: Physician Assistant; Admitting Provider Orthopaedic Surgery; Visit Provider Orthopaedic Surgery
PROC: (CPT 27447; principal; 2019-08-25 16:30)
DX: M17.12 Unilateral primary osteoarthritis, left knee (principal); G89.18 Other acute postprocedural pain; J44.1 Chronic obstructive pulmonary disease with (acute) exacerbation; R94.31 Abnormal electrocardiogram [ECG] [EKG]; I48.91 Unspecified atrial fibrillation; I25.10 Atherosclerotic heart disease of native coronary artery without angina pectoris; I10 Essential (primary) hypertension; E11.42 Type 2 diabetes mellitus with diabetic polyneuropathy; E78.00 Pure hypercholesterolemia, unspecified; K21.9 Gastro-esophageal reflux disease without esophagitis; Z79.82 Long term (current) use of aspirin; Z79.899 Other long term (current) drug therapy; Z87.891 Personal history of nicotine dependence; Z95.2 Presence of prosthetic heart valve
CPT/HCPCS: 27447; 64447; 36415; 71045; 73560; 80048; 83735; 84100; 85025; 85027; 86850; 86900; 86901; 93005; 94640; 94667; 97110; 97116; 97161; 97165; 97530; 97535; A9270; C1713; C1776; G0378; J0171; J0690; J1100; J1170; J1885; J2270; J2405; J2704; J2795; J3010; J7030; J7120

== ENCOUNTER 2023-05-03 15:40 | Outpatient (CLI) | payer MEDICARE, SELFPAY ==
--- NOTE | 2023-05-03 15:57 | ECG_ITS ---
Measurements Intervals [place] Rate: 89 P: 36 CA: 199 QRS: 20 QRSD: 94 T: 29 QT: 400 QTc: 488 Interpretive Statements SINUS OR ECTOPICA ATRIAL RHYTHM VENTRICULAR COUPLET AND FREQUENT VENTRICULAR PREMATURE COMPLEXES BORDERLINE ST-T WAVE ABNORMALITY- INF/LAT LEADS BASELINE ARTIFACT- I, III, AVR, AVL,A VF, V1-V6 ABNORMAL ECG COMPARED TO ECG 08/25/2019 14:59:55 NO SIGNIFICANT CHANGES Electronically Signed On 05-03-2023 16:21:49 CDT by Derik Tapia D.O.
[2023-05-03 16:19] LABS: Hematocrit 36.2 % (42.0-52.0); Hemoglobin 11.4 g/dL (14.0-18.0)
[2023-05-03 16:45] LABS: Hemoglobin A1C 6.3 % (<5.7)
[2023-05-03 16:50] LABS: Albumin Level 4.4 g/dL (3.5-5.1); Estimated Glomerular Filt Rate > 60; Glucose 106 mg/dL (65-110)
== END 2023-05-03 15:41 | disposition home or self-care (01) ==
PROVIDERS: Visit Provider Orthopaedic Surgery
DX: E11.42 Type 2 diabetes mellitus with diabetic polyneuropathy (principal); E78.00 Pure hypercholesterolemia, unspecified; I10 Essential (primary) hypertension; J44.1 Chronic obstructive pulmonary disease with (acute) exacerbation; M17.11 Unilateral primary osteoarthritis, right knee; I25.10 Atherosclerotic heart disease of native coronary artery without angina pectoris; R94.31 Abnormal electrocardiogram [ECG] [EKG]; R00.8 Other abnormalities of heart beat
CPT/HCPCS: 36415; 82040; 82565; 82947; 83036; 85014; 85018; 93005

== ENCOUNTER 2023-06-05 14:19 | Outpatient (CLI) | payer MEDICARE, SELFPAY ==
[2023-06-05 15:51] LABS: Basophils Absolute Auto 0.1 K/mm3 (0.0-0.1); Basophils Percent Auto 0.6 % (0.2-1.2); Eosinophils Absolute Auto 0.3 K/mm3 (0-0.3); Eosinophils Percent Auto 3.5 % (0-4.4); Hematocrit 37.2 % (42.0-52.0); Hemoglobin 11.6 g/dL (14.0-18.0); Immature Granulocyte Absolute 0.03 K/mm3 (0.00-0.031); Immature Granulocyte Percent A 0.3 % (0-0.5); Lymphocytes Absolute Auto 2.21 K/mm3 (0.9-3.2); Lymphocytes Percent Auto 23.4 % (18.3-44.2); Mean Corpuscular HGB Conc 31.2 g/dl (32-36); Mean Corpuscular Hemoglobin 26.5 pg (26-34); Mean Corpuscular Volume 84.9 fl (80-100); Mean Platelet Volume 9.9 fl (7.4-10.4); Monocytes Absolute Auto 1.3 K/mm3 (0.1-0.6); Neutrophils Absolute Auto 5.5 K/mm3 (1.3-6.7); Neutrophils Percent Auto 58.2 % (45.5-73.1); Platelet Count Result 265 k/mm3 (150-375); Red Blood Count 4.38 M/mm3 (4.6-6.20); Red Cell Distribution Width 17.8 % (11.5-14.5); White Blood Count 9.4 K/mm3 (4.5-10.0)
[2023-06-05 16:00] LABS: Anion Gap 9 mmol/L (8-16); Blood Urea Nitrogen 18 mg/dL (9-20); Calcium 9.3 mg/dL (8.4-10.2); Carbon Dioxide 32 mmol/L (22-30); Chloride 102 mmol/L (98-107); Estimated Glomerular Filt Rate > 60; Glucose 102 mg/dL (65-110); Potassium 4.3 mmol/L (3.4-5.0); Sodium 143 mmol/L (137-145)
[2023-06-05 16:03] LABS: Urine Cotinine NEGATIVE
[2023-06-05 16:05] LABS: INR 1.7; Prothrombin Time 21.4 Seconds (11.1-14.7)
[2023-06-05 16:06] LABS: Partial Thromboplastin Time 35.4 SECONDS (22.3-36.8)
== END 2023-06-05 14:20 | disposition home or self-care (01) ==
LOC: ANHSURGERY 14:27
PROVIDERS: Anesthesiology; PCP Nurse Practitioner; Visit Provider Orthopaedic Surgery
DX: Z01.818 Encounter for other preprocedural examination (principal); M17.11 Unilateral primary osteoarthritis, right knee; E11.9 Type 2 diabetes mellitus without complications; Z79.01 Long term (current) use of anticoagulants
CPT/HCPCS: 36415; 80048; 80307; 85025; 85610; 85730; 86850; 86900; 86901; 87081

== ENCOUNTER 2023-06-18 15:18 | Inpatient (IN) | payer MEDICARE, SELFPAY ==
--- NOTE | 2023-06-05 13:55 | PC.NURSE ---
PRE-OP INSTRUCTIONS, PLEASE READ CAREFULLY Report to the Outpatient Waiting Room, entrance under the green pavilion located off [facility], at time _0830_ on date _06/17/23_. Planned Procedure Time: _1030_. PACK A SMALL OVERNIGHT BAG AND LEAVE IT IN THE CAR Time changes happen often and if your time is changed the preop area will call you the afternoon before. - You and your visitor will be asked to self-screen and do not enter if you have any COVID symptoms. - A mask is optional within the hospital at this time. -VISITING HOURS 8AM-8PM Patients may have clear liquids (water, carbonated beverages, clear teas, apple juice) until 3 hours prior to surgery (0730 AM) with a maximum of 20 ounces. - No food from midnight until time of surgery Take the following medications with a SIP of water the morning of surgery: _GABAPENTIN, METOPROLOL, & PAIN PILL IF NEEDED_ DO NOT STOP ANY OF YOUR OTHER PRESCRIPTION MEDICATIONS PRIOR TO SURGERY ?EXCEPT THE FOLLOWING Medications to discontinue per DR. KNIGHT - _WARFARIN 5 DAYS PRIOR TO SURGERY, Date to take last dose 06/11/23_ Medications to discontinue per ANESTHESIA -_PRESERVISION 3 DAYS PRIOR TO SURGERY, Date to take last dose 06/13/23_ Please no make-up, nail estonian, hairspray, perfume, deodorant, or body powder the day of surgery. No jewelry (including any body piercings) or valuables the day of surgery, leave them at home. Please take a shower or bath the night before, or the morning of, surgery with an antibacterial soap. Wear comfortable, loose fitting clothing. - Jewelry must be removed prior to entering the operating room. Rings and piercings that are not removed may be cut off. - The hospital will not accept responsibility for valuables. - Please leave all valuables, including medications, at home the day of surgery. If you are going home after surgery, a licensed special client bus driver must drive you home. - NO public transportation without another adult if you receive anesthesia. - We recommend that an adult stay with you for 24 hours following discharge. - We also recommend that you do not drive, make important decision, drink alcoholic beverages, or take any drugs that were not prescribed by your health care provider for at least 24 hours after your discharge time. Follow any additional instructions given to you from your surgeon. If you or anyone in your household have experienced Covid symptoms in the past week, please notify your surgeon or the nurse liaison at the phone number below for possible testing. Instructions given to _PATIENT & SPOUSE_and asked if any additional questions and then verbalized understanding. Patient advised to call surgeon office or pre surgery nurse liaison [phone] if any additional questions.
[2023-06-05 14:48] VITALS: BP 120/60; PULSE 70; RESP 20; TEMP 36.5; O2SAT 94; BMI 27.9
[2023-06-17] VITALS (17 sets, daily range): BP systolic 89–137; BP diastolic 44–92; PULSE 49–89; RESP 12–20; TEMP 36.1–36.8; O2SAT 92–100
[2023-06-17] MEDS: LACTATED RINGERS 1,000 ML 30 ML IV CONT ×2 (08:30→12:41)
[2023-06-17 09:06] LABS: Glucose Point of Care 119 mg/dl (65-105)
[2023-06-17] MEDS: ACETAMINOPHEN 500 MG TABLET 1000 MG PO ×2 (09:10→17:47)
[2023-06-17] MEDS: TRANEXAMIC ACID 1,000MG/ISO100 1,000 MG/100 ML BAG 200 MG IVPB (09:10)
[2023-06-17 09:22] LABS: INR 1.2; Prothrombin Time 15.4 Seconds (11.1-14.7)
--- NOTE | 2023-06-17 09:29 | WPDHPUPDATE1 ---
History and Physical Update Update Date/Time: 06/17/23 09:29 History and Physical has been reviewed, including an updated exam of the patient. There are NO changes in the patient's condition. Risks, benefits, and alternatives have been discussed and questions answered. Patient agrees to proceed with procedure.
--- NOTE | 2023-06-17 09:44 | WPDANESEPPF ---
Anes - Initial Pre Proc Eval Procedure: Operation Date: 06/17/23 10:30 Proposed Procedures p Right Total Knee Arthroplasty - [facility]ista MD Date/Time: 06/17/23 09:44 Surgeon: [facility]ista MD Pre Op Diagnosis: primary oa right knee Patient Data Age: 72 Gender: M Height: 1.8 m Weight: 93 kg Last Vital Signs Temp 36.8 C 06/17/23 08:30 Pulse 49 L 06/17/23 08:30 Resp 16 06/17/23 08:30 BP 121/72 06/17/23 08:30 Pulse Ox 97 06/17/23 08:30 O2 Del Method Room Air 06/17/23 08:30 Allergies Allergy/AdvReac Type Severity Reaction Status Date / Time No Known Allergies Allergy Verified 06/17/23 09:27 Home Medications Medication Instructions Recorded Confirmed Type atorvastatin 20 mg tablet 80 mg PO DAILY 06/03/19 06/05/23 History metformin 500 mg tablet 500 mg PO DAILY 06/03/19 06/05/23 History metoprolol tartrate 25 mg tablet 25 mg PO BID 06/03/19 06/17/23 History vit C 250 mg-vit E 90 mg-zinc 40 1 tablet PO DAILY 07/31/19 06/17/23 History mg-copper 1 [id number]-fjrccp capsule (PreserVision AREDS-2) tamsulosin 0.4 mg capsule 0.4 mg PO DAILY 08/25/20 06/05/23 History warfarin 2 mg tablet 2 mg PO HS 08/25/20 06/17/23 History finasteride 5 mg tablet 5 mg PO DAILY 03/22/23 06/05/23 History furosemide 40 mg tablet 40 mg PO QAM PRN Edema 03/22/23 06/05/23 History pantoprazole 40 mg tablet,delayed 40 mg PO QAM 03/22/23 06/05/23 History release ezetimibe 10 mg tablet 10 mg PO DAILY 06/05/23 06/05/23 History gabapentin 300 mg capsule 600 mg PO TID 06/05/23 06/17/23 History magnesium oxide 400 mg PO DAILY 06/05/23 06/05/23 History potassium chloride 10 mEq 10 meq PO BID 06/05/23 06/05/23 History tablet,extended release(part/cryst) (Klor-Con M) sennosides 8.6 mg tablet 8.6 mg PO BID PRN Constipation 06/05/23 06/05/23 History oxycodone-acetaminophen 5 mg-325 1 - 2 tablet PO Q4-6H PRN pain #30 06/17/23 Rx mg tablet tabs prednisone 5 mg tablet 5 mg PO DAILY 3 weeks #21 tabs 06/17/23 Rx Laboratory Tests 06/17/23 06/17/23 08:58 08:59 PT 15.4 H Seconds (11.1-14.7) INR 1.2 POC Capillary Glucose 119 H mg/dl (65-105) Patient hx anesthesia problems: none Family hx anesthesia problems: none Results Review: All pre-operative results and documents have been reviewed as part of the pre-operative evaluation. [facility] Past Medical History Medical History CAD (coronary artery disease) COPD (chronic obstructive pulmonary disease) Diabetes Dupuytren's contracture of both hands With release of contracture from the left index finger, persistent contractures of bilateral pink ease Gastroesophageal reflux disease History of cardiac disorder VALVE REPAIR NOVEMBER 2011 Hypercholesterolemia Hypertension Localized osteoarthritis of left knee Osteoarthritis of both knees PVCs (premature ventricular contractions) Sciatica Surgical History Surgical History (Updated 06/17/23 @ 09:45 by Danny Ware MD) H/O bilateral cataract extraction With lens implant in the left eye History of back surgery (~05/25/19) History of back surgery (~1986) History of hand surgery (~2001) History of neck surgery (~2002) History of open heart surgery (~12/27/11) mitral valve repaired Family History Family History Mother Cerebrovascular accident Heart disease Social History Social History Social History: Primary care physician: Dr. Yun in [place] Smoking packs per day: 4 Smoking cigarettes per day: 80.0 Years smoked: 20 Smoking pack-years: 80.00 Smoking status: Former smoker Tobacco type: cigarettes Second hand tobacco smoke exposure: No Additional smoking assessment comments: PT DENIES ALL TOBACCO USE Alcohol intake: current Drinks per week: 42 Alcohol use deta
[2023-06-17] MEDS: ceFAZolin 2 GM/D5W 50 ML 2 GM/50 ML BAG IVPB ×2 (10:00→17:46)
[2023-06-17 12:06] LABS: Glucose Point of Care 152 mg/dl (65-105)
[2023-06-17] MEDS: fentaNYL CITRATE INJ (*CRX) 100 MCG/2 ML VIAL 25 MCG IV PUSH ×8 (12:07→14:35)
--- NOTE | 2023-06-17 12:31 | P.OP_ITS ---
Procedure Note - Detailed Date of Procedure 06/17/23 Pre-op Diagnosis primary oa right knee Post-op Diagnosis Same Procedure Performed Total knee arthroplasty, right. Surgeon [facility]ista MD Vision Mixer Leila Delgado PA-C Anesthesia General and Regional (subsartorial block) Findings Severe valgus disease. Minimal lateral release required including the IT band. Excellent bone quality. Description of Procedure The patient was brought to the operating room. A general anesthetic was administered. The leg was prepped and draped in the usual sterile fashion. The limb was elevated and the tourniquet inflated to 300 mmHg during initial exposure, and cementation. A longitudinal incision was created along the medial border of the patella and patellar tendon, and a trivector approach to the knee was performed. Minimal medial release was taken. The knee was then flexed. The osteophytes were carefully removed. The intramedullary guide was placed in the femoral canal. The distal femoral resection was then taken with the oscillating saw. The collateral ligaments were carefully protected. The tibia was carefully exposed. The jig was applied, and the proximal tibia was resected according to preoperative plan. The knee was balanced in extension. Appropriate releases were taken where needed. The anterior cruciate ligament and meniscal remnants were removed. The posterior cruciate ligament was preserved. The patella was measured. Patellar resection was carried out with the oscillating saw. The lug holes drilled. The femur was sized and rotation assessed using a combination of gap balancing, posterior referencing, and the AP axis. The 4 in 1 cutting block was used to finish the femoral cuts after equal gaps were assured. The osteophytes were carefully removed from the back of the knee. The knee was copiously irrigated with antibiotic solution periodically throughout the procedure. The meniscal remnants were removed. The spacer block was used to confirm equal flexion and extension gaps. No further releases were needed. The tibia was sized and broached. The bony surfaces were prepared for cementing with pulsatile lavage. The real tibia was cemented into position. The femur was press-fit. The patella was press-fit. Excess cement was carefully removed. Patellar tracking was carefully assessed. No additional releases were required. Copious irrigation then performed. The wound was closed with #1 Vicryl suture, #1, 2-0, and 3-0 barbed suture, followed by Steri-Strips. A sterile bulky dressing was applied. Meticulous hemostasis was maintained throughout the procedure, and the bipolar cautery device was used. The pain relieving mixture was injected into the periarticular tissues during the procedure. There were no complications. The patient was extubated and brought to the recovery room in stable condition after the application of sterile dressing with Pierce bandage. Implants [employer] knee system, low profile cemented tibia size 6, press-fit cruciate retaining femoral component size 6 ,and a 10 mm cruciate retaining polyethylene insert. 35mm asymmetric metal backed tritanium patella component. Estimated Blood Loss 100 Drains No Pathology None sent Complications No immediate complications Condition Stable Disposition PACU [facility] Billing Surgery - Charge Forward: Surgery Billing
--- NOTE | 2023-06-17 14:36 | SUR.PHASEI ---
1300: Patient meets PACU discharge criteria, unit bed unavailable at this time. Patient placed in extended recovery status.
--- NOTE | 2023-06-17 15:20 | PC.NURSE ---
This patient, Danny Hodge, was admitted to [facility] Surg Room 330-01. Patient/family oriented to hospital policies and general routines including ID bracelet, bed and alarms, visiting hours, pain management, procedures, bathroom and other care routines, personal items, smoking policy, room service/diet, and visiting hours. Information on how to activate the Rapid Response Team has been discussed. Patient/Family are encouraged to report perceived risks to care and to ask questions if they do not understand what they are told or what they should do.
[2023-06-17] MEDS: oxyCODONE HCL (*CRX) 5 MG TAB IR 10 MG PO ×2 (15:58→20:22)
[2023-06-17] MEDS: GABAPENTIN 300 MG CAPSULE 600 MG PO ×2 (16:00→20:21)
[2023-06-17] MEDS: POTASSIUM CHLORIDE 10 MEQ ER TABLET PO (17:46)
[2023-06-17] MEDS: METOPROLOL TARTRATE 25 MG TABLET PO (20:20)
[2023-06-17] MEDS: WARFARIN (*PBKC) 2 MG TABLET PO (20:21)
--- NOTE | 2023-06-17 21:06 | WPDCN ---
Assessment and Plan Assessment and plan (1) Arthritis of right knee: Code(s): M17.11 - Unilateral primary osteoarthritis, right knee Status: Acute Assessment and Plan: Postoperative day 0 status post right total knee arthroplasty. Wound care, pain control, and DVT prophylaxis deferred to Dr. Batista. Agree with PT/OT consult. Check baseline labs in a.m. (2) Chronic obstructive pulmonary disease: Code(s): J44.9 - Chronic obstructive pulmonary disease, unspecified Status: Acute Assessment and Plan: No evidence to suggest acute exacerbation. Continue prescribed maintenance inhalers. (3) Type 2 diabetes mellitus: Code(s): E11.9 - Type 2 diabetes mellitus without complications Status: Acute Assessment and Plan: Resume metformin once tolerating p.o.. Initiate sliding scale insulin, Accu-Cheks, and hypoglycemic protocol. (4) Hypertension: Qualifiers: Hypertension type: essential hypertension Qualified Code(s): I10 - Essential (primary) hypertension Code(s): I10 - Essential (primary) hypertension Status: Acute Assessment and Plan: Blood pressures were reviewed and they were a bit soft postoperatively. Antihypertensives will be reviewed and resumed as appropriate. Plan Thank you for allowing us to participate in this patient's care. Please do not hesitate to contact us with any questions. HPI Data of Consult Date/Time: 06/17/23 21:05 Requesting Physician: [facility]ista MD Consult Narrative Reason for consult: Medical management. Narrative: This is a 72-year-old male with history of COPD, type 2 diabetes mellitus, hypertension, dyslipidemia, and mitral valve repair who presented to the hospital today for elective right knee arthroplasty. He has had longstanding pain in that knee not amenable to conservative outpatient treatment and elected for replacement. His surgery was performed under general anesthesia with regional block. No immediate complications were documented and an estimated blood loss was 100 mL. Postoperatively his blood pressure was a little soft but that has improved. He had ectopy and PACU and is being monitored on telemetry. No chest pain, shortness a breath, fever, chills, sweats, nausea, or vomiting. Review of Systems Review of Systems: Twelve systems were reviewed and are negative except for as per HPI. [facility] Past Medical History Medical History (Updated 06/18/23 @ 00:02 by Ritu G Gerling, PA-C) Benign prostatic hyperplasia Chronic obstructive pulmonary disease Dupuytren's contracture of both hands With release of contracture from the left index finger, persistent contractures of bilateral pink ease Gastroesophageal reflux disease Hypercholesterolemia Hypertension Osteoarthritis of both knees Peripheral neuropathy Sciatica Type 2 diabetes mellitus Surgical History Surgical History (Updated 06/18/23 @ 00:01 by Ritu Gilliland PA-C) History of back surgery (~05/25/19) History of back surgery (~1986) History of cardiac catheterization History of cataract extraction with lens replacement (11/2011) History of hand surgery (~2001) History of mitral valve repair History of neck surgery (~2002) Family History Family History Mother Cerebrovascular accident Heart disease Social History Social History (Updated 06/18/23 @ 00:02 by Ritu Gilliland PA-C) Social History: Surrogate medical decision maker: Madelyn Chan, daughter. Code status: Full code. Smoking packs per day: 4 Smoking cigarettes per day: 80.0 Years smoked: 20 Smoking pack-years: 80.00 Smoking status: Former smoker Tobacco type: cigarettes Second hand tobacco smoke exposure: No Alcohol intake: current Drinks per week: 2 Alcohol use details: Former heavy beer drinker. Was previously drinking a 6 pack a day until 03/20/2023.
[2023-06-18] VITALS (9 sets, daily range): BP systolic 106–141; BP diastolic 54–91; PULSE 68–84; RESP 14–18; TEMP 36.1–36.8; O2SAT 95–100
--- NOTE | ~2023-06-18 | XR_ITS ---
EXAMINATION: [id number] DATE: 06/17/2023 12:31 INDICATION: Postoperative evaluation following right total knee arthroplasty. TECHNIQUE: Anteroposterior and lateral views of the right knee were obtained. COMPARISON: None. FINDINGS: Right total knee arthroplasty with patellar resurfacing appears well seated and in near anatomic alig nment. No fractures identified. Expected postoperative subcutaneous and intra-articular gas. IMPRESSION: 1. Right total knee arthroplasty, negative for postoperative purposes. Reviewed, dictated and finalized at location A. [facility] [employer]
[2023-06-18] MEDS: ACETAMINOPHEN 500 MG TABLET 1000 MG PO ×4 (00:54→17:01)
[2023-06-18] MEDS: oxyCODONE HCL (*CRX) 5 MG TAB IR PO (01:04)
[2023-06-18] MEDS: SENNOSIDES 8.6 MG TABLET PO (01:04)
[2023-06-18] MEDS: ceFAZolin 2 GM/D5W 50 ML 2 GM/50 ML BAG IVPB ×2 (01:05→11:48)
[2023-06-18] MEDS: CYCLOBENZAPRINE HCL 10 MG TABLET PO (03:13)
[2023-06-18 07:02] LABS: Basophils Percent Auto 0.1 % (0.2-1.2); Hematocrit 31.8 % (42.0-52.0); Hemoglobin 9.6 g/dL (14.0-18.0); Immature Granulocyte Absolute 0.07 K/mm3 (0.00-0.031); Immature Granulocyte Percent A 0.5 % (0-0.5); Lymphocytes Absolute Auto 1.37 K/mm3 (0.9-3.2); Lymphocytes Percent Auto 9.6 % (18.3-44.2); Mean Corpuscular HGB Conc 30.2 g/dl (32-36); Mean Corpuscular Hemoglobin 26.1 pg (26-34); Mean Corpuscular Volume 86.4 fl (80-100); Mean Platelet Volume 10.6 fl (7.4-10.4); Monocytes Percent Auto 13.7 % (2.6-8.5); Neutrophils Absolute Auto 10.9 K/mm3 (1.3-6.7); Neutrophils Percent Auto 76.1 % (45.5-73.1); Platelet Count Result 249 k/mm3 (150-375); Red Blood Count 3.68 M/mm3 (4.6-6.20); Red Cell Distribution Width 18.2 % (11.5-14.5); White Blood Count 14.3 K/mm3 (4.5-10.0)
[2023-06-18 07:10] LABS: Anion Gap 9 mmol/L (8-16); Blood Urea Nitrogen 30 mg/dL (9-20); Calcium 8.8 mg/dL (8.4-10.2); Carbon Dioxide 27 mmol/L (22-30); Chloride 97 mmol/L (98-107); Estimated CRCL calculation 70 ml/min; Estimated Glomerular Filt Rate > 60; Glucose 274 mg/dL (65-110); Potassium 4.3 mmol/L (3.4-5.0); Sodium 133 mmol/L (137-145)
[2023-06-18 07:22] LABS: INR 1.3; Prothrombin Time 16.6 Seconds (11.1-14.7)
[2023-06-18 09:23] LABS: Glucose Point of Care 259 mg/dl (65-105)
[2023-06-18] MEDS: FINASTERIDE 5 MG TABLET PO (09:40)
[2023-06-18] MEDS: METOPROLOL TARTRATE 25 MG TABLET PO ×2 (09:40→16:59)
[2023-06-18] MEDS: MAGNESIUM OXIDE 400 MG TABLET PO (09:40)
[2023-06-18] MEDS: PANTOPRAZOLE 40 MG TABLET PO (09:40)
[2023-06-18] MEDS: GABAPENTIN 300 MG CAPSULE 600 MG PO ×3 (09:40→16:59)
[2023-06-18] MEDS: predniSONE 5 MG TABLET PO (09:40)
[2023-06-18] MEDS: ATORVASTATIN 40 MG TABLET 80 MG PO (09:40)
[2023-06-18] MEDS: POTASSIUM CHLORIDE 10 MEQ ER TABLET PO ×2 (09:40→16:59)
[2023-06-18] MEDS: polyethylene glycoL 3350 17 GM POWD.PACK PO (09:41)
[2023-06-18] MEDS: metFORMIN HCL 500 MG TABLET PO (09:41)
[2023-06-18] MEDS: TAMSULOSIN HCL 0.4 MG CAPSULE PO (09:41)
[2023-06-18] MEDS: INSULIN ASPART (*BKC) 100 UNITS/ML SUB-Q ×2 (09:42→11:49)
[2023-06-18] MEDS: oxyCODONE HCL (*CRX) 5 MG TAB IR 10 MG PO ×2 (09:46→17:01)
[2023-06-18] MEDS: EZETIMIBE 10 MG TABLET PO (09:47)
[2023-06-18 11:30] LABS: Glucose Point of Care 281 mg/dl (65-105)
--- NOTE | 2023-06-18 14:17 | P.PNAN_ITS ---
Anes - Prog Note Post-Op Date/Time: 06/18/23 14:17 Cardiovascular status: normal Respiratory status: normal Airway patency: baseline Mental status: baseline Post-Op hydration status: normal Vital Signs: Last Vital Signs Temp 97.7 F 06/18/23 12:00 Pulse 76 06/18/23 12:00 Resp 16 06/18/23 12:00 BP 126/54 L 06/18/23 12:00 Pulse Ox 96 06/18/23 12:00 O2 Del Method Room Air 06/18/23 10:18 O2 Flow Rate 3 06/17/23 13:15 Pain Score (VAS): 0/10 I/O: Intake & Output 06/17/23 06/18/23 06/18/23 23:59 07:59 15:59 Intake Total 720 1050 600 Balance 720 1050 600 Laboratory Tests 06/18/23 06:36 06/18/23 06:36 06/18/23 06/18/23 06/18/23 06:36 07:23 11:23 WBC 14.3 H RBC 3.68 L Hgb 9.6 L Hct 31.8 L MCV 86.4 MCH 26.1 MCHC 30.2 L RDW 18.2 H Plt Count 249 MPV 10.6 H Immature Gran % (Auto) 0.5 Neut % (Auto) 76.1 H Lymph % (Auto) 9.6 L Schuyler % (Auto) 13.7 H Eos % (Auto) 0.0 Baso % (Auto) 0.1 L Lymph # (Auto) 1.37 Schuyler # (Auto) 2.0 H Eos # (Auto) 0.0 Baso # (Auto) 0.0 Abs Immat Gran (auto) 0.07 H Absolute Neuts (auto) 10.9 H Absolute Nucleated RBC 0.0 Nucleated RBC % 0.0 PT 16.6 H INR 1.3 Sodium 133 L Potassium 4.3 Chloride 97 L Carbon Dioxide 27 Anion Gap 9 BUN 30 H D Creatinine 0.90 Estim Creat Clear Calc 70 Estimated GFR > 60 Glucose 274 H POC Capillary Glucose 259 H 281 H Calcium 8.8 Post-procedural complaints: none Patient Feedback: Patient satisfied with anesthetic care.
[2023-06-18 16:33] LABS: Glucose Point of Care 140 mg/dl (65-105)
[2023-06-18 20:27] LABS: Glucose Point of Care 154 mg/dl (65-105)
[2023-06-18] MEDS: WARFARIN (*PBKC) 2 MG TABLET PO (20:37)
[2023-06-18] MEDS: traMADol HCL (*CRX) 50 MG TABLET PO (20:38)
[2023-06-19] MEDS: ACETAMINOPHEN 500 MG TABLET 1000 MG PO ×4 (00:19→23:08)
[2023-06-19] MEDS: oxyCODONE HCL (*CRX) 5 MG TAB IR 10 MG PO ×3 (04:02→16:26)
[2023-06-19] MEDS: CYCLOBENZAPRINE HCL 10 MG TABLET PO ×2 (04:04→12:23)
[2023-06-19 05:42] VITALS: BP 144/72; PULSE 84; RESP 18; TEMP 36.6; O2SAT 100
[2023-06-19 06:08] LABS: INR 1.2; Prothrombin Time 16.1 Seconds (11.1-14.7)
[2023-06-19 08:03] LABS: Glucose Point of Care 111 mg/dl (65-105)
[2023-06-19 08:57] VITALS: PULSE 84
[2023-06-19] MEDS: METOPROLOL TARTRATE 25 MG TABLET PO ×2 (08:57→16:27)
[2023-06-19] MEDS: EZETIMIBE 10 MG TABLET PO (08:57)
[2023-06-19] MEDS: ATORVASTATIN 40 MG TABLET 80 MG PO (08:57)
[2023-06-19] MEDS: FINASTERIDE 5 MG TABLET PO (08:57)
[2023-06-19] MEDS: GABAPENTIN 300 MG CAPSULE 600 MG PO ×3 (08:57→16:27)
[2023-06-19] MEDS: PANTOPRAZOLE 40 MG TABLET PO (08:58)
[2023-06-19] MEDS: POTASSIUM CHLORIDE 10 MEQ ER TABLET PO ×2 (08:58→16:27)
[2023-06-19] MEDS: metFORMIN HCL 500 MG TABLET PO (08:58)
[2023-06-19] MEDS: polyethylene glycoL 3350 17 GM POWD.PACK PO (08:58)
[2023-06-19] MEDS: MAGNESIUM OXIDE 400 MG TABLET PO (08:58)
[2023-06-19] MEDS: predniSONE 5 MG TABLET PO (08:58)
[2023-06-19] MEDS: TAMSULOSIN HCL 0.4 MG CAPSULE PO (08:58)
[2023-06-19 11:55] LABS: Glucose Point of Care 189 mg/dl (65-105)
--- NOTE | 2023-06-19 12:48 | PM.PNORT ---
Progress Note: A&P Assessment and Plan (1) Status post total right knee replacement: Code(s): Z96.651 - Presence of right artificial knee joint Status: Acute Assessment and Plan: Postop day 2: Right total knee arthroplasty. Patient tolerated procedure well. He does have some muscle weakness and was not safe to return home per formal physical therapy. I recommend he go to inpatient rehab to help build strength post operatively. Waiting placement. Subjective Subjective Date/Time Seen: 06/19/23 12:48 Interval history: Patient is having issues with mobility. Waiting on placement for rehab. Increased pain today. No other complaints. Review of Systems Review of Systems: All systems reviewed & are unremarkable except as noted in HPI and below Exam Narrative: 72 -year-old overweight male. Resting comfortably in chair. Alert and oriented x3. No acute distress. Wearing compression socks bilaterally. Dressing dry and intact without drainage. Moderate swelling. No ecchymosis. No erythema. No hematoma. Range of motion limited due to pain. Poor quad function. Calf nontender. Neurologic status intact. No varicosities. Distal pulses palpable. Objective Data Vital Signs Vital Signs: Vital Signs - 24 hr 06/18/23 16:59 06/18/23 16:00 06/18/23 21:15 Temperature 97.4 F L 96.9 F L Pulse Rate 76 76 68 Respiratory Rate 14 18 Blood Pressure 112/71 106/61 Pulse Oximetry 100 95 Oxygen Delivery 06/18/23 20:00 06/19/23 05:42 06/19/23 08:57 Temperature 97.9 F Pulse Rate 68 84 84 Respiratory Rate 18 18 Blood Pressure 144/72 H Pulse Oximetry 95 100 Oxygen Delivery Room Air 06/19/23 08:00 Temperature Pulse Rate Respiratory Rate Blood Pressure Pulse Oximetry Oxygen Delivery Room Air Intake/Output Intake/Output: Intake & Output 06/16/23 06/17/23 06/18/23 06/19/23 23:59 23:59 23:59 23:59 Intake Total 1570 2890 820 Balance 1570 2890 820 Meds/Results Medications: Active Medications Generic Name Dose Route Start Last Admin Trade Name Freq PRN Reason Stop Dose Admin Acetaminophen 1,000 mg 06/17/23 18:00 06/19/23 12:23 Acetaminophen 500 Mg Tablet PO 1,000 mg Q6HR ANIKA Administration Atorvastatin Calcium 80 mg 06/18/23 09:00 06/19/23 08:57 Atorvastatin 40 Mg Tablet PO 80 mg DAILY ANIKA Administration Cyclobenzaprine HCl 10 mg 06/17/23 15:04 06/19/23 12:23 Cyclobenzaprine Hcl 10 Mg Tablet PO 10 mg Q8H PRN Administration Spasms Dextrose 12.5 gm 06/18/23 00:04 Dextrose 50% 25 Gm/50 Ml Syringe IV PUSH PRN PRN Hypoglycemia Protocol Diphenhydramine HCl 25 mg 06/17/23 15:04 Diphenhydramine Hcl Inj 50 Mg/Ml Vial IV PUSH Q6H PRN Itching Ezetimibe 10 mg 06/18/23 09:00 06/19/23 08:57 Ezetimibe 10 Mg Tablet PO 10 mg DAILY ANIKA Administration Finasteride 5 mg 06/18/23 09:00 06/19/23 08:57 Finasteride 5 Mg Tablet PO 5 mg DAILY ANIKA Administration Furosemide 40 mg 06/17/23 15:04 Furosemide 40 Mg Tablet PO QAM PRN Edema Gabapentin 600 mg 06/17/23 15:04 06/19/23 12:23 Gabapentin 300 Mg Capsule PO 600 mg TID ANIKA Administration Glucagon 1 mg 06/18/23 00:04 Glucagon For Inj 1 Mg Vial IM PRN PRN Hypoglycemia Protocol Glucose 15 gm 06/18/23 00:04 Glucose Oral Gel 15 Gm Of Glucse In 37.5 Gm Tube PO PRN PRN Hypoglycemia Protocol Dextrose 1,000 mls @ 100 mls/hr 06/18/23 00:04 Dextrose 5% 1,000 Ml IVPB PRN PRN Hypoglycemia Protocol Insulin Aspart 2 - 5 units 06/18/23 08:00 06/19/23 12:19 Insulin Aspart (*Bkc) 100 Units/Ml SUB-Q Not Given TIDWM ANIKA Protocol Insulin Aspart 1 - 2 units 06/18/23 21:00 06/18/23 20:25 Insulin Aspart (*Bkc) 100 Units/Ml SUB-Q Not Given HS ANIKA Protocol Magnesium Oxide 400 mg 06/18/23 09:00 06/19/23 08:58 Magnesium Oxide 400 Mg T
[2023-06-19 14:00] VITALS: BP 102/56; PULSE 81; RESP 14; TEMP 37.3; O2SAT 96
--- NOTE | 2023-06-19 15:30 | PM.PNORT ---
Progress Note: A&P Assessment and Plan (1) Arthritis of right knee: Code(s): M17.11 - Unilateral primary osteoarthritis, right knee Status: Acute (2) Orthopedic aftercare for joint replacement: Code(s): Z47.1 - Aftercare following joint replacement surgery Status: Acute (3) Status post total right knee replacement: Code(s): Z96.651 - Presence of right artificial knee joint Status: Acute Plan Patient was seen yesterday 06/18/23. His pain was moderate. He was unable to stand on his own and required the Julisa steady device. He has a history of frequent falls and buckling of both knees. Knee arthroplasty addressed loose bodies and severe arthritis, however he has profound deconditioning and weakness. It is clear that he will not be safe to go home. He will require a stay in rehab. His rehab potential is good. He may weight bear as tolerated with a walker. Will move the patient to an inpatient status. Subjective Subjective Date/Time Seen: 06/19/23 15:30 Post Op day: 1 Interval history: Moderate pain and concerning weakness. Give-way and difficulty standing on his own power. He has required significant assist. Exam Narrative: Appears uncomfortable. Sitting in the chair. knee wound is dry. Mild expected swelling. Gentle motion well tolerated. Quad activity limited. No distal edema. Neurovascular status intact distally. Objective Data Vital Signs Vital Signs: Vital Signs - 24 hr 06/18/23 16:59 06/18/23 16:00 06/18/23 21:15 Temperature 36.3 C L 36.1 C L Pulse Rate 76 76 68 Respiratory Rate 14 18 Blood Pressure 112/71 106/61 Pulse Oximetry 100 95 Oxygen Delivery 06/18/23 20:00 06/19/23 05:42 06/19/23 08:57 Temperature 36.6 C Pulse Rate 68 84 84 Respiratory Rate 18 18 Blood Pressure 144/72 H Pulse Oximetry 95 100 Oxygen Delivery Room Air 06/19/23 08:00 06/19/23 14:00 Temperature 37.3 C Pulse Rate 81 Respiratory Rate 14 Blood Pressure 102/56 L Pulse Oximetry 96 Oxygen Delivery Room Air Intake/Output Intake/Output: Intake & Output 06/16/23 06/17/23 06/18/23 06/19/23 23:59 23:59 23:59 23:59 Intake Total 1570 2890 1060 Balance 1570 2890 1060 Meds/Results Medications: Active Medications Generic Name Dose Route Start Last Admin Trade Name Freq PRN Reason Stop Dose Admin Acetaminophen 1,000 mg 06/17/23 18:00 06/19/23 12:23 Acetaminophen 500 Mg Tablet PO 1,000 mg Q6HR ANIKA Administration Atorvastatin Calcium 80 mg 06/18/23 09:00 06/19/23 08:57 Atorvastatin 40 Mg Tablet PO 80 mg DAILY ANIKA Administration Cyclobenzaprine HCl 10 mg 06/17/23 15:04 06/19/23 12:23 Cyclobenzaprine Hcl 10 Mg Tablet PO 10 mg Q8H PRN Administration Spasms Dextrose 12.5 gm 06/18/23 00:04 Dextrose 50% 25 Gm/50 Ml Syringe IV PUSH PRN PRN Hypoglycemia Protocol Diphenhydramine HCl 25 mg 06/17/23 15:04 Diphenhydramine Hcl Inj 50 Mg/Ml Vial IV PUSH Q6H PRN Itching Ezetimibe 10 mg 06/18/23 09:00 06/19/23 08:57 Ezetimibe 10 Mg Tablet PO 10 mg DAILY ANIKA Administration Finasteride 5 mg 06/18/23 09:00 06/19/23 08:57 Finasteride 5 Mg Tablet PO 5 mg DAILY ANIKA Administration Furosemide 40 mg 06/17/23 15:04 Furosemide 40 Mg Tablet PO QAM PRN Edema Gabapentin 600 mg 06/17/23 15:04 06/19/23 12:23 Gabapentin 300 Mg Capsule PO 600 mg TID ANIKA Administration Glucagon 1 mg 06/18/23 00:04 Glucagon For Inj 1 Mg Vial IM PRN PRN Hypoglycemia Protocol Glucose 15 gm 06/18/23 00:04 Glucose Oral Gel 15 Gm Of Glucse In 37.5 Gm Tube PO PRN PRN Hypoglycemia Protocol Dextrose 1,000 mls @ 100 mls/hr 06/18/23 00:04 Dextrose 5% 1,000 Ml IVPB PRN PRN Hypoglycemia Protocol Insulin Aspart 2 - 5 units 06/18/23 08:00 06/19/23 12:19 Insulin Aspart (*Bkc) 100 Units/Ml SUB-Q No
[2023-06-19 16:27] VITALS: PULSE 81
--- NOTE | 2023-06-19 16:40 | PM.IMPN ---
Progress Note: A&P Assessment and Plan (1) Arthritis of right knee: Code(s): M17.11 - Unilateral primary osteoarthritis, right knee Status: Acute Assessment and Plan: Postoperative day 1 status post right total knee arthroplasty. Wound care, pain control, and DVT prophylaxis deferred to Dr. Batista. Continue PT and OT. Placement being considered. (2) Chronic obstructive pulmonary disease: Code(s): J44.9 - Chronic obstructive pulmonary disease, unspecified Status: Acute Assessment and Plan: No evidence to suggest acute exacerbation. Lungs remain clear. Continue prescribed maintenance inhalers. Patient has listed Prednisone which we will clarify. (3) Type 2 diabetes mellitus: Code(s): E11.9 - Type 2 diabetes mellitus without complications Status: Acute Assessment and Plan: A1c 6.3% in May. The patient's blood glucose was reviewed on 06/19 Glucose remains better controlled. Continue AccuCheks covering with sliding scale. Hypoglycemia protocol available as needed. Continue to monitor (4) Hypertension: Qualifiers: Hypertension type: essential hypertension Qualified Code(s): I10 - Essential (primary) hypertension Code(s): I10 - Essential (primary) hypertension Status: Acute Assessment and Plan: Patient's blood pressure was reviewed on 06/19 Blood pressure remains well controlled. Will continue to monitor (5) History of mitral valve repair: Code(s): Z98.890 - Other specified postprocedural states Status: Acute Assessment and Plan: Patient on Coumadin chronically for mitral valve repair. Previous EKG showing sinus or ectopic atrial rhythm. Coumadin has been resumed. Check daily INR Plan DVT prophylaxis - Coumadin Code status - full Subjective Date/time seen: 06/19/23 16:40 Interval history: 72yo male with HTN, DM and COPD here for elective knee replacement. Assuming care. Chart reviewed. Patient's right knee pain is controlled with current pain regiment. He was up to the chair today. Not ambulating well yet. He did have a back surgery in January is still recovering from that. He has to will lock his left leg for stability. Therapist noted patient having bilateral leg spasms mostly on the right. Overall the therapist felt the patient's mobility was improving. Exam Narrative: AF 99.1 102/56 81 14 96% room air Gen - NARD Chest - CTA bilaterally, nml RR CV -be irregularly irregular. S1-S2. Abd - Soft, NT/ND, Positive BS Ext -right knee dressing is clean, dry and intact. No lower extremity edema. Bilateral Jerome hose in place. Psych - Nml mood and affect Skin - Warm and dry Objective Data Vital Signs Vital Signs: Vital Signs - 24 hr 06/18/23 16:59 06/18/23 21:15 06/18/23 20:00 Temperature 96.9 F L Pulse Rate 76 68 68 Respiratory Rate 18 18 Blood Pressure 106/61 Pulse Oximetry 95 95 Oxygen Delivery Room Air 06/19/23 05:42 06/19/23 08:57 06/19/23 08:00 Temperature 97.9 F Pulse Rate 84 84 Respiratory Rate 18 Blood Pressure 144/72 H Pulse Oximetry 100 Oxygen Delivery Room Air 06/19/23 14:00 06/19/23 16:27 Temperature 99.1 F Pulse Rate 81 81 Respiratory Rate 14 Blood Pressure 102/56 L Pulse Oximetry 96 Oxygen Delivery Intake/Output Intake/Output: Intake & Output 06/16/23 06/17/23 06/18/23 06/19/23 23:59 23:59 23:59 23:59 Intake Total 1570 2890 1060 Balance 1570 2890 1060 Meds/Results Medications: Active Medications Generic Name Dose Route Start Last Admin Trade Name Freq PRN Reason Stop Dose Admin Acetaminophen 1,000 mg 06/17/23 18:00 06/19/23 12:23 Acetaminophen 500 Mg Tablet PO 1,000 mg Q6HR ANIKA Administration Atorvastatin Calcium 80 mg 06/18/23 09:00 06/19/23 08:57 Atorvastatin 40 Mg Tablet PO 80 mg DAILY ANIKA Administration Cyclobenzaprine HCl 10 mg 06/17
[2023-06-19 16:47] LABS: Glucose Point of Care 146 mg/dl (65-105)
[2023-06-19 20:00] VITALS: PULSE 81; RESP 14; O2SAT 96
[2023-06-19 20:15] VITALS: BP 114/59; PULSE 73; RESP 18; TEMP 36.6; O2SAT 95
[2023-06-19] MEDS: oxyCODONE HCL (*CRX) 5 MG TAB IR PO (20:42)
[2023-06-19] MEDS: WARFARIN (*PBKC) 2 MG TABLET PO (20:43)
[2023-06-19 20:47] LABS: Glucose Point of Care 178 mg/dl (65-105)
[2023-06-20] MEDS: oxyCODONE HCL (*CRX) 5 MG TAB IR PO ×2 (00:22→05:17)
[2023-06-20] MEDS: CYCLOBENZAPRINE HCL 10 MG TABLET PO (00:22)
[2023-06-20 01:00] VITALS: PULSE 92; RESP 32; TEMP 37.2; O2SAT 90
[2023-06-20 04:50] VITALS: BP 143/88; PULSE 79; RESP 16; TEMP 36.3; O2SAT 97
[2023-06-20] MEDS: ACETAMINOPHEN 500 MG TABLET 1000 MG PO ×3 (05:18→17:47)
[2023-06-20 06:27] LABS: Hematocrit 30.8 % (42.0-52.0); Hemoglobin 9.6 g/dL (14.0-18.0); Mean Corpuscular HGB Conc 31.2 g/dl (32-36); Mean Corpuscular Hemoglobin 26.8 pg (26-34); Mean Platelet Volume 10.2 fl (7.4-10.4); Platelet Count Result 235 k/mm3 (150-375); Red Blood Count 3.58 M/mm3 (4.6-6.20); Red Cell Distribution Width 18.4 % (11.5-14.5); White Blood Count 9.8 K/mm3 (4.5-10.0)
[2023-06-20 06:37] LABS: INR 1.3; Prothrombin Time 16.5 Seconds (11.1-14.7)
--- NOTE | 2023-06-20 06:39 | PC.NURSE ---
patients has been up to the restroom everyone to void, bladder scanned patient after voiding this morning, 355 ml still left in bladder, informed MD Burger, patient refusing a mcneal to be placed. N.o flomax 0.4 mg.
[2023-06-20 06:42] LABS: Anion Gap 6 mmol/L (8-16); Blood Urea Nitrogen 25 mg/dL (9-20); Calcium 8.8 mg/dL (8.4-10.2); Carbon Dioxide 30 mmol/L (22-30); Chloride 97 mmol/L (98-107); Estimated CRCL calculation 64 ml/min; Estimated Glomerular Filt Rate > 60; Glucose 121 mg/dL (65-110); Potassium 4.5 mmol/L (3.4-5.0); Sodium 133 mmol/L (137-145)
--- NOTE | 2023-06-20 06:42 | PC.NURSE ---
patient already taking proscar and flomax informed MD Alek HERNANDESO.
[2023-06-20 07:56] LABS: Glucose Point of Care 114 mg/dl (65-105)
[2023-06-20 08:00] VITALS: PULSE 79; RESP 16; O2SAT 97
[2023-06-20] MEDS: FINASTERIDE 5 MG TABLET PO (08:59)
[2023-06-20] MEDS: ATORVASTATIN 40 MG TABLET 80 MG PO (08:59)
[2023-06-20] MEDS: metFORMIN HCL 500 MG TABLET PO (08:59)
[2023-06-20] MEDS: POTASSIUM CHLORIDE 10 MEQ ER TABLET PO ×2 (08:59→17:47)
[2023-06-20] MEDS: EZETIMIBE 10 MG TABLET PO (08:59)
[2023-06-20] MEDS: GABAPENTIN 300 MG CAPSULE 600 MG PO ×3 (08:59→17:47)
[2023-06-20] MEDS: METOPROLOL TARTRATE 25 MG TABLET PO ×2 (08:59→17:47)
[2023-06-20] MEDS: predniSONE 5 MG TABLET PO (08:59)
[2023-06-20] MEDS: TAMSULOSIN HCL 0.4 MG CAPSULE PO (08:59)
[2023-06-20] MEDS: MAGNESIUM OXIDE 400 MG TABLET PO (09:01)
[2023-06-20] MEDS: PANTOPRAZOLE 40 MG TABLET PO (09:01)
[2023-06-20 11:29] LABS: Glucose Point of Care 151 mg/dl (65-105)
[2023-06-20 14:00] VITALS: BP 113/80; PULSE 91; RESP 16; TEMP 36.6; O2SAT 97
[2023-06-20 16:37] LABS: Glucose Point of Care 148 mg/dl (65-105)
--- NOTE | 2023-06-20 16:48 | PM.PNORT ---
Progress Note: A&P Assessment and Plan (1) Orthopedic aftercare for joint replacement: Code(s): Z47.1 - Aftercare following joint replacement surgery Status: Acute (2) Status post total right knee replacement: Code(s): Z96.651 - Presence of right artificial knee joint Status: Acute Plan Pain control improved. Able to walk several steps to the door with therapy today. Quad activity still poor. Wound healing nicely. No drainage. Mild swelling. Calf nontender. Neurovascular status intact. Okay to discharge to rehab tomorrow. If [facility] is available he and his family would like to except that placement. Subjective Subjective Date/Time Seen: 06/20/23 16:48 Objective Data Vital Signs Vital Signs: Vital Signs - 24 hr 06/19/23 20:00 06/19/23 20:15 06/20/23 01:00 Temperature 36.6 C 37.2 C Pulse Rate 81 73 92 Respiratory Rate 14 18 32 H Blood Pressure 114/59 L Pulse Oximetry 96 95 90 Oxygen Delivery Room Air 06/20/23 04:50 06/20/23 04:50 06/20/23 08:00 Temperature 36.3 C L 36.3 C L Pulse Rate 79 79 79 Respiratory Rate 16 16 16 Blood Pressure 143/88 H 143/88 H Pulse Oximetry 97 97 97 Oxygen Delivery Room Air 06/20/23 14:00 Temperature 36.6 C Pulse Rate 91 Respiratory Rate 16 Blood Pressure 113/80 Pulse Oximetry 97 Oxygen Delivery Intake/Output Intake/Output: Intake & Output 06/17/23 06/18/23 06/19/23 06/20/23 23:59 23:59 23:59 23:59 Intake Total 1570 2890 2500 800 Output Total 400 Balance 1570 2890 2500 400 Meds/Results Medications: Active Medications Generic Name Dose Route Start Last Admin Trade Name Freq PRN Reason Stop Dose Admin Acetaminophen 1,000 mg 06/17/23 18:00 06/20/23 12:43 Acetaminophen 500 Mg Tablet PO 1,000 mg Q6HR ANIKA Administration Atorvastatin Calcium 80 mg 06/18/23 09:00 06/20/23 08:59 Atorvastatin 40 Mg Tablet PO 80 mg DAILY ANIKA Administration Cyclobenzaprine HCl 10 mg 06/17/23 15:04 06/20/23 00:22 Cyclobenzaprine Hcl 10 Mg Tablet PO 10 mg Q8H PRN Administration Spasms Dextrose 12.5 gm 06/18/23 00:04 Dextrose 50% 25 Gm/50 Ml Syringe IV PUSH PRN PRN Hypoglycemia Protocol Diphenhydramine HCl 25 mg 06/17/23 15:04 Diphenhydramine Hcl Inj 50 Mg/Ml Vial IV PUSH Q6H PRN Itching Ezetimibe 10 mg 06/18/23 09:00 06/20/23 08:59 Ezetimibe 10 Mg Tablet PO 10 mg DAILY ANIKA Administration Finasteride 5 mg 06/18/23 09:00 06/20/23 08:59 Finasteride 5 Mg Tablet PO 5 mg DAILY ANIKA Administration Furosemide 40 mg 06/17/23 15:04 Furosemide 40 Mg Tablet PO QAM PRN Edema Gabapentin 600 mg 06/17/23 15:04 06/20/23 12:43 Gabapentin 300 Mg Capsule PO 600 mg TID ANIKA Administration Glucagon 1 mg 06/18/23 00:04 Glucagon For Inj 1 Mg Vial IM PRN PRN Hypoglycemia Protocol Glucose 15 gm 06/18/23 00:04 Glucose Oral Gel 15 Gm Of Glucse In 37.5 Gm Tube PO PRN PRN Hypoglycemia Protocol Dextrose 1,000 mls @ 100 mls/hr 06/18/23 00:04 Dextrose 5% 1,000 Ml IVPB PRN PRN Hypoglycemia Protocol Insulin Aspart 2 - 5 units 06/18/23 08:00 06/20/23 11:32 Insulin Aspart (*Bkc) 100 Units/Ml SUB-Q Not Given TIDWM ANIKA Protocol Insulin Aspart 1 - 2 units 06/18/23 21:00 06/19/23 20:34 Insulin Aspart (*Bkc) 100 Units/Ml SUB-Q Not Given HS [facility] Protocol Magnesium Oxide 400 mg 06/18/23 09:00 06/20/23 09:01 Magnesium Oxide 400 Mg Tablet PO 400 mg DAILY ANIKA Administration Metformin HCl 500 mg 06/18/23 09:00 06/20/23 08:59 Metformin Hcl 500 Mg Tablet PO 500 mg DAILY ANIKA Administration Metoprolol Tartrate 25 mg 06/17/23 17:00 06/20/23 08:59 Metoprolol Tartrate 25 Mg Tablet PO 25 mg BID ANIKA Administration Naloxone HCl 0.1 mg 06/17/23 15:04 Naloxone Hcl 0.4 Mg/Ml Vial IV PUSH Q2M PRN Opiate Re
--- NOTE | 2023-06-20 17:24 | PM.IMPN ---
Progress Note: A&P Assessment and Plan (1) Arthritis of right knee: Code(s): M17.11 - Unilateral primary osteoarthritis, right knee Status: Acute Assessment and Plan: Postoperative day 3 status post right total knee arthroplasty. Wound care, pain control, and DVT prophylaxis deferred to Dr. Batista. Continue PT and OT. Placement being considered but doing better with therapy. (2) Chronic obstructive pulmonary disease: Code(s): J44.9 - Chronic obstructive pulmonary disease, unspecified Status: Acute Assessment and Plan: No evidence to suggest acute exacerbation. Lungs remain clear. Continue prescribed maintenance inhalers. Patient has Prednisone on home med list but denies that he is on this. Will hold and she will bring in the list to review. (3) Type 2 diabetes mellitus: Code(s): E11.9 - Type 2 diabetes mellitus without complications Status: Acute Assessment and Plan: A1c 6.3% in May. The patient's blood glucose was reviewed on 06/20 Glucose remains better controlled. Continue AccuCheks covering with sliding scale. Hypoglycemia protocol available as needed. Continue to monitor (4) Hypertension: Qualifiers: Hypertension type: essential hypertension Qualified Code(s): I10 - Essential (primary) hypertension Code(s): I10 - Essential (primary) hypertension Status: Acute Assessment and Plan: Patient's blood pressure was reviewed on 06/20 Blood pressure remains well controlled. Will continue to monitor (5) History of mitral valve repair: Code(s): Z98.890 - Other specified postprocedural states Status: Acute Assessment and Plan: Patient on Coumadin chronically for mitral valve repair. Previous EKG showing sinus or ectopic atrial rhythm. Coumadin has been resumed. Continue daily INR Plan DVT prophylaxis - Coumadin Code status - full Subjective Date/time seen: 06/20/23 17:24 Interval history: 72yo male with HTN, DM and COPD here for elective knee replacement. Doing well today. Able to tolerate therpay better and now walking out into the [place]. Feels tired. His in the room is the one who manages his medications and does not believe that he is on prednisone. Exam Narrative: AF 97.9 113/80 91 16 97% room air Gen - NARD Chest - CTA bilaterally, nml RR CV - irregularly irregular. S1-S2. Abd - Soft, NT/ND, Positive BS Ext -right knee with cold water sleeve in place. No lower extremity edema. Bilateral Jerome hose in place. Psych - Nml mood and affect Skin - Warm and dry Objective Data Vital Signs Vital Signs: Vital Signs - 24 hr 06/19/23 20:00 06/19/23 20:15 06/20/23 01:00 Temperature 97.9 F 99 F Pulse Rate 81 73 92 Respiratory Rate 14 18 32 H Blood Pressure 114/59 L Pulse Oximetry 96 95 90 Oxygen Delivery Room Air 06/20/23 04:50 06/20/23 04:50 06/20/23 08:00 Temperature 97.3 F L 97.3 F L Pulse Rate 79 79 79 Respiratory Rate 16 16 16 Blood Pressure 143/88 H 143/88 H Pulse Oximetry 97 97 97 Oxygen Delivery Room Air 06/20/23 14:00 Temperature 97.9 F Pulse Rate 91 Respiratory Rate 16 Blood Pressure 113/80 Pulse Oximetry 97 Oxygen Delivery Intake/Output Intake/Output: Intake & Output 06/17/23 06/18/23 06/19/23 06/20/23 23:59 23:59 23:59 23:59 Intake Total 1570 2890 2500 800 Output Total 400 Balance 1570 2890 2500 400 Meds/Results Medications: Active Medications Generic Name Dose Route Start Last Admin Trade Name Freq PRN Reason Stop Dose Admin Acetaminophen 1,000 mg 06/17/23 18:00 06/20/23 12:43 Acetaminophen 500 Mg Tablet PO 1,000 mg Q6HR ANIKA Administration Atorvastatin Calcium 80 mg 06/18/23 09:00 06/20/23 08:59 Atorvastatin 40 Mg Tablet PO 80 mg DAILY ANIKA Administration Cyclobenzaprine HCl 10 mg 06/17/23 15:04 06/20/23 00:22 Cyclobenzaprine Hcl 10 Mg Tablet PO
[2023-06-20 20:51] VITALS: BP 141/84; PULSE 98; RESP 18; TEMP 35.8; O2SAT 97
[2023-06-20 22:03] LABS: Glucose Point of Care 169 mg/dl (65-105)
[2023-06-20] MEDS: oxyCODONE HCL (*CRX) 5 MG TAB IR 10 MG PO (22:47)
[2023-06-20] MEDS: WARFARIN (*PBKC) 3 MG TABLET PO (22:48)
[2023-06-21 05:29] VITALS: BP 140/83; PULSE 48; RESP 18; TEMP 35.6; O2SAT 97
[2023-06-21] MEDS: oxyCODONE HCL (*CRX) 5 MG TAB IR 10 MG PO ×2 (05:49→21:32)
[2023-06-21] MEDS: ACETAMINOPHEN 500 MG TABLET 1000 MG PO ×3 (05:50→17:57)
[2023-06-21 06:40] LABS: INR 1.2; Prothrombin Time 15.8 Seconds (11.1-14.7)
[2023-06-21 08:00] VITALS: PULSE 48; RESP 18; O2SAT 97
--- NOTE | 2023-06-21 08:04 | PM.DS ---
DS: Admitting Diagnosis Discharge Date 06/22/23 Admitting Diagnosis Knee arthritis. DS: Discharge Diagnosis Discharge Diagnosis (1) Status post total right knee replacement: Code(s): Z96.651 - Presence of right artificial knee joint Status: Acute Assessment and Plan: Postop day 4: Right total knee arthroplasty. Patient had issues with ambulating and formal physical therapy after surgery. He will need inpatient rehab at discharge. Planning in progress. No numbness or tingling. Quad function weak. He has neuropathy. Deconditioned. Pain controlled with pain medications. We had a lengthy discussion regarding postoperative wound care, limitations, expectations, and exercises. Patient shows good understanding. DVT prophylaxis: Continue warfarin. Pain medication: Percocet. Tylenol. Prednisone. Patient has followup appointment with Dr. Batista in 3 weeks. DS: Summary Hospital Course Hospital Course: Patient has had issues with ambulating and formal physical therapy. He will need inpatient formal physical therapy. Time Spent with Patient Time attestation: Total time spent providing and/or coordinating discharge services: Exam Narrative: 72 -year-old overweight male. Resting comfortably in bed. Alert and oriented x3. No acute distress. Wearing compression socks bilaterally. Dressing dry and intact without drainage. Moderate swelling. No ecchymosis. No erythema. No hematoma. Range of motion limited due to pain. Limited quad function. Calf nontender. Neurologic status intact. No varicosities. Distal pulses palpable. DS: Data Data Completed and Pending Labs on day of discharge: Labs from last 24 hours 06/21/23 06/20/23 06/20/23 06:19 20:53 16:27 PT 15.8 H INR 1.2 POC Capillary Glucose 169 H 148 H 06/20/23 11:07 PT INR POC Capillary Glucose 151 H Discharge Plan Discharge Attending physician on discharge: Angel Batista Consulting providers: Edson Pickard Discharging Clinician: Leila Delgado Patient Disposition: Inpatient Rehab Facility Activity: may shower Diet: as tolerated Wound Care Instructions: follow printed instructions Discharge Instructions: See green instruction sheet Patient Instructions: Warfarin (By mouth) Stand Alone Forms: General Discharge Information, General Discharge Instructions Follow-up/Referrals: Leila Delgado, PA [Physician Competitive Intelligence Analyst] - Discharge Medications: New prednisone 5 mg tablet 5 mg PO DAILY 21 Days Qty: 21 0RF oxycodone-acetaminophen 5-325 mg tablet 1 - 2 tablet PO Q4-6H MDD 6 PRN (Reason: pain) Qty: 30 0RF oxycodone-acetaminophen 5-325 mg tablet 1 - 2 tablet PO Q4-6H MDD 6 PRN (Reason: pain) Qty: 30 0RF Continued tamsulosin 0.4 mg capsule 0.4 mg PO DAILY warfarin 2 mg tablet 2 mg PO HS metformin 500 mg tablet 500 mg PO DAILY atorvastatin 20 mg tablet 80 mg PO DAILY metoprolol tartrate 25 mg tablet 25 mg PO BID furosemide 40 mg tablet 40 mg PO QAM PRN (Reason: Edema) pantoprazole 40 mg tablet,delayed release (DR/EC) 40 mg PO QAM finasteride 5 mg tablet 5 mg PO DAILY sennosides 8.6 mg Tablet 8.6 mg PO BID PRN (Reason: Constipation) ezetimibe 10 mg Tablet 10 mg PO DAILY potassium chloride [Klor-Con M10] 10 mEq tablet,ER particles/crystals 10 meq PO BID magnesium oxide 400 mg magnesium Capsule 400 mg PO DAILY PreserVision AREDS-2 [id number] Capsule 1 tablet PO DAILY gabapentin 300 mg capsule 600 mg PO TID Discontinued hydrocodone-acetaminophen 5-325 mg tablet 1 tablet Q6H PRN (Reason: Pain) Date of admission: 06/19/23 09:38 Primary Care Provider: Ed,Isadora Smith Admitting Provider: Angel Batista Attending physician on admission: Angel Batista Condition: Stable
[2023-06-21 09:02] LABS: Glucose Point of Care 132 mg/dl (65-105)
[2023-06-21] MEDS: ATORVASTATIN 40 MG TABLET 80 MG PO (09:03)
[2023-06-21] MEDS: GABAPENTIN 300 MG CAPSULE 600 MG PO ×3 (09:03→17:58)
[2023-06-21] MEDS: PANTOPRAZOLE 40 MG TABLET PO (09:03)
[2023-06-21] MEDS: METOPROLOL TARTRATE 25 MG TABLET PO ×2 (09:03→17:58)
[2023-06-21] MEDS: EZETIMIBE 10 MG TABLET PO (09:04)
[2023-06-21] MEDS: POTASSIUM CHLORIDE 10 MEQ ER TABLET PO ×2 (09:04→17:57)
[2023-06-21] MEDS: TAMSULOSIN HCL 0.4 MG CAPSULE PO (09:04)
[2023-06-21] MEDS: MAGNESIUM OXIDE 400 MG TABLET PO (09:04)
[2023-06-21] MEDS: FINASTERIDE 5 MG TABLET PO (09:04)
[2023-06-21] MEDS: metFORMIN HCL 500 MG TABLET PO (09:08)
--- NOTE | 2023-06-21 11:41 | PM.IMPN ---
Progress Note: A&P Assessment and Plan (1) Arthritis of right knee: Code(s): M17.11 - Unilateral primary osteoarthritis, right knee Status: Acute Assessment and Plan: Postoperative day 4 status post right total knee arthroplasty. Wound care, pain control, and DVT prophylaxis deferred to Dr. Batista. Continue PT and OT. Plan for placement at discharge (2) Chronic obstructive pulmonary disease: Code(s): J44.9 - Chronic obstructive pulmonary disease, unspecified Status: Acute Assessment and Plan: No evidence to suggest acute exacerbation. Continue prescribed maintenance inhalers. Patient has Prednisone on home med list but denies that he is on this. Prednisone held (3) Type 2 diabetes mellitus: Code(s): E11.9 - Type 2 diabetes mellitus without complications Status: Acute Assessment and Plan: A1c 6.3% in May. The patient's blood glucose was reviewed on 06/21 Glucose remains well controlled. Continue AccuCheks covering with sliding scale. Hypoglycemia protocol available as needed. Continue to monitor (4) Hypertension: Qualifiers: Hypertension type: essential hypertension Qualified Code(s): I10 - Essential (primary) hypertension Code(s): I10 - Essential (primary) hypertension Status: Acute Assessment and Plan: Patient's blood pressure was reviewed on 06/21 Blood pressure remains well controlled. Will continue to monitor (5) History of mitral valve repair: Code(s): Z98.890 - Other specified postprocedural states Status: Acute Assessment and Plan: Patient on Coumadin chronically for mitral valve repair. Previous EKG showing sinus or ectopic atrial rhythm. Coumadin has been resumed. INR 1.2 Continue daily INR Plan DVT prophylaxis - Coumadin, SCDs Code status - full Subjective Date/time seen: 06/21/23 11:41 Interval history: 72yo male with HTN, DM and COPD here for elective knee replacement. No problems overnight. Pain is minimal to the right knee. Was up walking to the bathroom earlier today. Exam Narrative: AF 96.1 140/83 98 18 97% room air Gen - NARD Chest -few basilar rhonchi otherwise clear. Respiratory rate CV - irregularly irregular. S1-S2. Abd - Soft, NT/ND, Positive BS Ext -right knee dressing is clean, dry and intact.. No lower extremity edema. Bilateral Jerome hose in place. Psych - Nml mood and affect Skin - Warm and dry Objective Data Vital Signs Vital Signs: Vital Signs - 24 hr 06/20/23 14:00 06/20/23 20:51 06/21/23 05:29 Temperature 97.9 F 96.5 F L 96.1 F L Pulse Rate 91 98 48 L Respiratory Rate 16 18 18 Blood Pressure 113/80 141/84 H 140/83 Pulse Oximetry 97 97 97 Intake/Output Intake/Output: Intake & Output 06/18/23 06/19/23 06/20/23 06/21/23 23:59 23:59 23:59 23:59 Intake Total 2890 2500 2240 1370 Output Total 1500 350 Balance 2890 2500 740 1020 Meds/Results Medications: Active Medications Generic Name Dose Route Start Last Admin Trade Name Freq PRN Reason Stop Dose Admin Acetaminophen 1,000 mg 06/17/23 18:00 06/21/23 05:50 Acetaminophen 500 Mg Tablet PO 1,000 mg Q6HR ANIKA Administration Atorvastatin Calcium 80 mg 06/18/23 09:00 06/21/23 09:03 Atorvastatin 40 Mg Tablet PO 80 mg DAILY ANIKA Administration Cyclobenzaprine HCl 10 mg 06/17/23 15:04 06/20/23 00:22 Cyclobenzaprine Hcl 10 Mg Tablet PO 10 mg Q8H PRN Administration Spasms Dextrose 12.5 gm 06/18/23 00:04 Dextrose 50% 25 Gm/50 Ml Syringe IV PUSH PRN PRN Hypoglycemia Protocol Diphenhydramine HCl 25 mg 06/17/23 15:04 Diphenhydramine Hcl Inj 50 Mg/Ml Vial IV PUSH Q6H PRN Itching Ezetimibe 10 mg 06/18/23 09:00 06/21/23 09:04 Ezetimibe 10 Mg Tablet PO 10 mg DAILY ANIKA Administration Finasteride 5 mg 06/18/23 09:00 06/21/23 09:04 Finasteride 5 Mg Tablet
[2023-06-21 11:54] LABS: Glucose Point of Care 154 mg/dl (65-105)
[2023-06-21] MEDS: polyethylene glycoL 3350 17 GM POWD.PACK PO (13:53)
[2023-06-21 14:00] VITALS: BP 138/86; PULSE 58; RESP 18; TEMP 36.4; O2SAT 96
[2023-06-21 17:21] LABS: Glucose Point of Care 141 mg/dl (65-105)
[2023-06-21 18:59] LABS: SARS-CoV-2 RNA PCR Negative (Negative)
[2023-06-21] MEDS: WARFARIN (*PBKC) 3 MG TABLET PO (21:29)
[2023-06-21] MEDS: CYCLOBENZAPRINE HCL 10 MG TABLET PO (21:32)
[2023-06-21 22:00] VITALS: BP 114/81; PULSE 66; RESP 18; TEMP 36.4; O2SAT 99
[2023-06-22] MEDS: ACETAMINOPHEN 500 MG TABLET 1000 MG PO ×2 (00:05→04:52)
[2023-06-22 00:21] LABS: Glucose Point of Care 145 mg/dl (65-105)
[2023-06-22] MEDS: oxyCODONE HCL (*CRX) 5 MG TAB IR 10 MG PO ×2 (04:50→08:34)
[2023-06-22 06:00] VITALS: BP 128/71; PULSE 76; RESP 18; TEMP 36.4; O2SAT 92
[2023-06-22 06:10] LABS: INR 1.2; Prothrombin Time 16.1 Seconds (11.1-14.7)
[2023-06-22 07:46] LABS: Glucose Point of Care 107 mg/dl (65-105)
[2023-06-22] MEDS: polyethylene glycoL 3350 17 GM POWD.PACK PO (08:31)
[2023-06-22 08:32] VITALS: PULSE 62
[2023-06-22] MEDS: METOPROLOL TARTRATE 25 MG TABLET PO (08:32)
[2023-06-22] MEDS: POTASSIUM CHLORIDE 10 MEQ ER TABLET PO (08:32)
[2023-06-22] MEDS: GABAPENTIN 300 MG CAPSULE 600 MG PO (08:32)
[2023-06-22] MEDS: MAGNESIUM OXIDE 400 MG TABLET PO (08:33)
[2023-06-22] MEDS: metFORMIN HCL 500 MG TABLET PO (08:33)
[2023-06-22] MEDS: TAMSULOSIN HCL 0.4 MG CAPSULE PO (08:33)
[2023-06-22] MEDS: FINASTERIDE 5 MG TABLET PO (08:34)
[2023-06-22] MEDS: PANTOPRAZOLE 40 MG TABLET PO (08:34)
[2023-06-22] MEDS: ATORVASTATIN 40 MG TABLET 80 MG PO (08:34)
[2023-06-22] MEDS: EZETIMIBE 10 MG TABLET PO (08:34)
--- NOTE | 2023-06-22 10:19 | PM.IMPN ---
Progress Note: A&P Assessment and Plan (1) Arthritis of right knee: Code(s): M17.11 - Unilateral primary osteoarthritis, right knee Status: Acute Assessment and Plan: Postoperative day 5 status post right total knee arthroplasty. Wound care, pain control, and DVT prophylaxis deferred to Dr. Batista. Continue PT and OT. Plan for SNF placement today. (2) Chronic obstructive pulmonary disease: Code(s): J44.9 - Chronic obstructive pulmonary disease, unspecified Status: Acute Assessment and Plan: No evidence to suggest acute exacerbation. Continue prescribed maintenance inhalers. Patient has Prednisone on home med list but states this was just ordered for unclear reasons. Prednisone held (3) Type 2 diabetes mellitus: Code(s): E11.9 - Type 2 diabetes mellitus without complications Status: Acute Assessment and Plan: A1c 6.3% in May. The patient's blood glucose was reviewed on 06/22 Glucose remains well controlled. Continue AccuCheks covering with sliding scale. Hypoglycemia protocol available as needed. Continue to monitor (4) Hypertension: Qualifiers: Hypertension type: essential hypertension Qualified Code(s): I10 - Essential (primary) hypertension Code(s): I10 - Essential (primary) hypertension Status: Acute Assessment and Plan: Patient's blood pressure was reviewed on 06/22 Blood pressure remains well controlled. Will continue to monitor (5) History of mitral valve repair: Code(s): Z98.890 - Other specified postprocedural states Status: Acute Assessment and Plan: Patient on Coumadin chronically for mitral valve repair but suspect more likely related to pAFib. Previous EKG showing sinus or ectopic atrial rhythm. Coumadin has been resumed. INR 1.2 Continue daily INR; defer to accepting provider about INR management Plan DVT prophylaxis - Coumadin, SCDs Code status - full Subjective Date/time seen: 06/22/23 10:19 Interval history: 72yo male with HTN, DM and COPD here for elective knee replacement. Slept okay. No BM but +flatus. No LH/CP/SOB. Pain persistent but tolerable. Eating well. No n/v. Patient on coumadin for MV repair and also for pAFib Exam Narrative: AF 97.5 128/71 62 18 92% room air Gen - NARD Chest - CTA bilaterally, nml RR CV - irregularly irregular. S1-S2. Abd - Soft, NT/ND, Positive BS Ext -right knee dressing is clean, dry and intact. Trace right extremity edema. Bilateral Jerome hose in place. Psych - Nml mood and affect Skin - Warm and dry Objective Data Vital Signs Vital Signs: Vital Signs - 24 hr 06/21/23 14:00 06/21/23 20:00 06/21/23 22:00 Temperature 97.6 F 97.5 F L Pulse Rate 58 L 66 Respiratory Rate 18 18 Blood Pressure 138/86 114/81 Pulse Oximetry 96 99 Oxygen Delivery Room Air 06/22/23 06:00 06/22/23 08:32 06/22/23 08:00 Temperature 97.5 F L Pulse Rate 76 62 Respiratory Rate 18 Blood Pressure 128/71 Pulse Oximetry 92 Oxygen Delivery Room Air Intake/Output Intake/Output: Intake & Output 06/19/23 06/20/23 06/21/23 06/22/23 23:59 23:59 23:59 23:59 Intake Total 2500 2240 3120 1377 Output Total 1500 1900 800 Balance 2500 740 1220 577 Meds/Results Radiology Results: ITS Impressions Knee X-Ray 06/17/23 13:21 IMPRESSION: 1. Right total knee arthroplasty, negative for postoperative purposes. Labs Labs: Laboratory Results - last 24 hr 06/21/23 06/21/23 06/21/23 11:51 17:16 18:02 PT INR POC Capillary Glucose 154 H 141 H SARS-CoV-2 RNA (RT-PCR) Negative 06/21/23 06/22/23 06/22/23 21:11 05:46 07:34 PT 16.1 H INR 1.2 POC Capillary Glucose 145 H 107 H SARS-CoV-2 RNA (RT-PCR)
== END 2023-06-22 10:08 | DRG 470 ==
LOC: ANHSURGERY 15:21 → ANH3MEDSUR 15:21
PROVIDERS: Anesthesiology; Internal Medicine; Admitting Provider Orthopaedic Surgery; PCP Nurse Practitioner; Visit Provider Physician Assistant Surgical
PROC: 0SRC0J9 Replacement of Right Knee Joint with Synthetic Substitute, Cemented, Open Approach (ICD-10-PCS; CPT 27447; principal; 2023-06-17 10:30)
DX: M17.11 Unilateral primary osteoarthritis, right knee (principal); M21.061 Valgus deformity, not elsewhere classified, right knee; I25.10 Atherosclerotic heart disease of native coronary artery without angina pectoris; J44.9 Chronic obstructive pulmonary disease, unspecified; M72.0 Palmar fascial fibromatosis [Dupuytren]; N40.0 Benign prostatic hyperplasia without lower urinary tract symptoms; E11.42 Type 2 diabetes mellitus with diabetic polyneuropathy; K21.9 Gastro-esophageal reflux disease without esophagitis; I49.3 Ventricular premature depolarization; Z79.84 Long term (current) use of oral hypoglycemic drugs; Z79.01 Long term (current) use of anticoagulants; Z98.42 Cataract extraction status, left eye; Z96.1 Presence of intraocular lens; Z98.41 Cataract extraction status, right eye; Z87.891 Personal history of nicotine dependence
CPT/HCPCS: 36415; 73560; 80048; 82948; 85025; 85027; 85610; 87635; 97110; 97116; 97161; 97166; 97530; 97535; A9270; C1713; C1776; J0171; J0690; J1100; J1815; J1885; J2270; J2371; J2405; J2704; J2795; J3010; J7120; J7512

== ENCOUNTER 2023-07-08 08:19 | Outpatient (CLI) | payer MEDICARE, SELFPAY ==
--- NOTE | ~2023-07-08 | XR_ITS ---
XR knee RT 3V DATE: 07/08/2023 08:53 INDICATION: Right artificial knee joint TECHNIQUE: [place] and standing AP and lateral views COMPARISON: October 18, 2022 right knee FINDINGS: There is osteopenia. Status post right total knee arthroplasty with patellar resurfacing. No fracture or dislocation, periosteal reaction or bone destruction is detected. Femoral and popliteal artery calcification. IMPRESSION: Status post right total knee arthroplasty No fracture or dislocation or joint effusion is detected Osteopenia Reviewed, dictated and finalized at location B. ING OFFICER
== END 2023-07-08 08:20 | disposition home or self-care (01) ==
PROVIDERS: PCP Nurse Practitioner; Visit Provider Orthopaedic Surgery
DX: M85.861 Other specified disorders of bone density and structure, right lower leg (principal); Z96.651 Presence of right artificial knee joint
CPT/HCPCS: 73562

== ENCOUNTER 2023-08-05 09:27 | Outpatient (CLI) | payer MEDICARE, SELFPAY ==
--- NOTE | ~2023-08-05 | XR_ITS ---
XR knee RT min 4V DATE: 08/05/2023 09:48 INDICATION: Aftercare joint replacement TECHNIQUE: 4 views COMPARISON: 07/08/2023 right knee FINDINGS: There is suggestion of suprapatellar knee joint effusion. Status post right total knee arthroplasty including patellar resurfacing, with normal alignment. No f racture, dislocation, periosteal reaction or bone destruction. Femoral and popliteal artery calcification. IMPRESSION: Status post right total knee arthroplasty Suggestion of mild suprapatellar knee joint effusion Reviewed, dictated and finalized at location B. CTOR OF KIDS
== END 2023-08-05 09:28 | disposition home or self-care (01) ==
LOC: ANHIMG 09:29
PROVIDERS: PCP Nurse Practitioner; Visit Provider Orthopaedic Surgery
DX: Z47.1 Aftercare following joint replacement surgery (principal); M25.461 Effusion, right knee
CPT/HCPCS: 73564

== ENCOUNTER 2024-06-17 14:11 | Outpatient (CLI) | payer MEDICARE, SELFPAY ==
--- NOTE | ~2024-06-17 | XR_ITS ---
[id number] Ordering provider: Angel Batista MD History: . Z47.1 - Aftercare following joint replacement surgery . Comparison: None. FINDINGS: BONES: No acute fracture or dislocation. JOINT SPACES: Total knee arthroplasty. SOFT TISSUES: Vascular atherosclerotic changes. IMPRESSION: No acute osseous abnormality right knee. Total knee arthroplasty. Reviewed, dictated and finalized at location A. CH CREDIT COUNSELOR
== END 2024-06-17 14:12 | disposition home or self-care (01) ==
LOC: ANHIMG 14:16
PROVIDERS: PCP Nurse Practitioner; Visit Provider Orthopaedic Surgery
DX: Z47.1 Aftercare following joint replacement surgery (principal); Z96.651 Presence of right artificial knee joint
CPT/HCPCS: 73560